=== PATIENT | male | born 1950 | race Caucasian/White ===

== ENCOUNTER 2018-02-06 09:20 | Inpatient (IN) | END 2018-02-07 13:30 | disposition home or self-care (01) | DRG 483 ==

== ENCOUNTER 2018-05-01 05:35 | Inpatient (IN) | END 2018-05-02 16:20 | disposition home or self-care (01) | DRG 483 ==

== ENCOUNTER 2018-06-26 06:19 | Inpatient (IN) | payer MEDICARE, OTHER ==
[2018-06-26] VITALS (23 sets, daily range): BP systolic 96–153; BP diastolic 53–94; PULSE 63–99; RESP 10–29; Ht 180.3 cm; Wt 149.8 kg
[~2018-06-26] VITALS: Ht 180.3 cm; Wt 149.8 kg
--- NOTE | 2018-06-26 05:32 | HPN ---
Date/Time of Note Date/Time of Note DATE: 06/26/18 TIME: 05:32 Interval H&P Admission Note Pt. seen H&P reviewed: No system changes DANILO RIVERA MD Jun 26, 2018 05:32
--- NOTE | 2018-06-26 05:36 | OPR ---
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 Assistance was necessary as a result of the highly technical nature of this operation. When performing an open total shoulder replacement, it is critical to have a trained photographer assistant who is an expert in handling the extremity and assisting the surgeon in tasks such as manipulation of the arm, protection of the neurovascular structures and positioning the implants. This assistance cannot be performed by a radio/tv technician, as it is considered an integral part of the procedure and he should be compensated for their time. PROCEDURE IN DETAIL: Following the administration of general anesthesia supplemented with a peripheral nerve block for postoperative pain control, the patient was examined under anesthesia. Examination of the right shoulder revealed severe crepitus and a complete deformity as a result of the chronic posterior dislocation of the glenohumeral component. There was anteroposterior escape of the humeral head, also. There was an extended deltopectoral incision. The patient was then placed in the beach chair position. Sterile prep and drape was then undertaken. The prior deltopectoral incision was then carried through the interval exposing the conjoined tendon and retracting it medially. A severe deformity was noted and the humeral component was seen to be superiorly displaced. The glenoid appeared intact. No purulence was noted. The humeral component was then seen to be loosen and spinning in the canal. This was removed easily. The humeral canal remained intact. The humerus was retracted and the glenoid was exposed to assure stability. THe glenoid component was intact with severe synovitis. This was debrided The humerus was then reamed and prepared for a size 12 mm,long stem humeral component with a standard metaphyseal component. The actual components were implanted with solid fixation with a 9 mmm trend investigator and a 6 mm liner. The arm was taken through full range of motion with no evident instability. The joint was then thoroughly irrigated, the deep tissues were approximated using #1 suture followed by closure of the deep layer using 2-0 Monocryl. The skin was closed using 4-0 Monocryl suture, and a Prenio dressing. An Ultrasling was then applied. The patient was awakened and transported to the recovery room in stable condition. Estimated blood loss for this procedure was 200 cc. Radiographs will be obtained in the recovery room. DANILO RIVERA MD Jun 26, 2018 05:36
[~2018-06-26 06:19] MED LIST: BUPIVACAINE 0.5% (SDV) 30 ML, morphine SULFATE (PF) 8 MG, EPINEPHrine 0.3 MG, KETOROLAC... IRR SCH; DEXAMETHASONE 1 MG TAB PO ONE; GABA800T PO; GABAPENTIN 300 MG CAP PO ONE; LACTATED RINGER'S 1,000 ML IV* SCH; LEVO75TA5 PO; PRAM0.5T5 PO; PRAM1TAB PO; TRANEXAMIC ACID 1,000 MG in DEXTROSE 5% 100 ML IVPB ONE; VANCOMYCIN 1 GM (PMX) 250 ML IVPB ONE
[2018-06-26] MEDS ORDERED: POLYMYXIN/BACITRACIN 1L IRRIG ONE (06:43)
[2018-06-26] MEDS ORDERED: BUPIVACAINE 0.5%/EPI (SDV) 30 ML INJ ONE (06:52)
[2018-06-26] MEDS ORDERED: THROMBIN 5000 UNIT VIAL ONE (06:53)
[2018-06-26] MEDS ORDERED: CA CHLORIDE 10% 10 ML SYRINGE ONE (06:53)
[2018-06-26] MEDS ORDERED: DESFLURANE 15 MIN ONE (07:00)
[2018-06-26] MEDS ORDERED: GABA-528 PO (07:04)
[2018-06-26] MEDS ORDERED: DULO60CA6 PO (07:06)
[2018-06-26] MEDS ORDERED: PRAM0.5T5 PO (07:06)
[2018-06-26] MEDS ORDERED: ROPIVACAINE 0.5 % 30 ML VIAL ONE (07:27)
[2018-06-26] MEDS ORDERED: PROPOFOL 20 ML ONE ×2 (07:27→09:06)
[2018-06-26] MEDS ORDERED: ROCURONIUM 50 MG INJ ONE (07:27)
[2018-06-26] MEDS ORDERED: MIDAZOLAM 1 MG/ML 2 ML INJ ONE (07:27)
[2018-06-26] MEDS ORDERED: HYDROmorphONE 2 MG/ML SYG ONE (07:27)
[2018-06-26] MEDS ORDERED: CEFAZOLIN 1 GM INJ ONE (07:27)
--- NOTE | 2018-06-26 08:48 | PREAC ---
Date/Time of Note Date/Time of Note DATE: 06/26/18 TIME: 08:46 Anesthesia Eval and Record Evaluation Time Pre-Procedure Interview DATE: 06/26/18 TIME: 08:46 Age 68 Sex male NPO: 8 hrs Preoperative diagnosis Right Shoulder OA Planned procedure Right Total Shoulder Replacement Past Medical History Past Medical History: Includes Endo: Hypothyroid Musculoskeletal: Osteoarthritis GI: Obesity Surgery & Anesthesia Issues No known issue Meds Anticoagulation: No Beta Kartik within 24 hr: No Reason Beta Kartik not given: Pt. not on B-Kartik Reported Medications Duloxetine Hcl* (Cymbalta*) 60 Mg Capsule.dr, 60 MG PO BID, CAP 06/26/18 Pramipexole* (Mirapex*) 0.5 Mg Tablet, 0.5 MG PO QAM, TAB 06/26/18 Gabapentin* (Gabapentin*) 800 Mg Tablet, 1600 MG PO QHS, #90 TAB 06/26/18 Gabapentin* (Neurontin*) 800 Mg Tablet, 800 MG PO BID, #90 TAB 1 TAB IN AM 1 TAB AT NOON 05/01/18 Levothyroxine Sodium* (Levothyroxine Sodium*) 75 Mcg Tablet, 75 MCG PO BEFORE BREAKFAST, #30 TAB 02/06/18 Pramipexole* (Pramipexole*) 1 Mg Tablet, 1 MG PO HS, TAB 02/06/18 Discontinued Reported Medications Pramipexole* (Mirapex*) 0.5 Mg Tablet, 0.5 MG PO BID, TAB 05/01/18 Current Medications Bupivacaine HCl/ Morphine Sulfate/ Epinephrine/ Ketorolac Tromethamine/ Clonidine/Sodium Chloride/ Vancomycin HCl INTRA-OP IRR ; Start 06/26/18 at 06:00 Lactated Ringer's 1,000 ml @ 0 mls/hr Q0M IV* ; Start 06/26/18 at 06:00; Stop 06/26/18 at 23:00 Meds reviewed: Yes Allergies Coded Allergies: Penicillins (Verified Allergy, Unknown, 06/26/18) latex (Verified Allergy, Unknown, 06/26/18) Allergies Reviewed: Yes Labs/Studies Labs Reviewed: Reviewed by anesthesiologist test: N/A Studies: ECG (NSR), CXR (WNL) Pre-procedure Exam Last vitals Vital Signs Date Temp Pulse Resp B/P (MAP) Pulse Ox O2 O2 Flow FiO2 Time Delivery Rate 1/3/19 96.7 73 18 153/94 99 Room Air 07:30 (113) Airway: Adequate mouth opening, Adequate thyromental dist Mallampati: Mallampati II Teeth: Normal Lung: Normal Heart: Normal ASA Physical Status ASA physical status: 2 Emergency: None Planned Anesthetic General/MAC: ETT Nerve block: Brachial plexus (right) Planned Pain Management Single shot nerve block, Parenteral pain med Pre-operative Attestations Prior to commencing anesthesia and surgery, the patient was re-evaluated, there was verification of: *The patient's identity *The results of appropriate recent lab work and preoperative vital signs *The above evaluation not changing prior to induction *Anesthetic plan, risk benefits, alternative and complications discussed with patient/family; questions answered; patient/family understands, accepts and wishes to proceed. LAURIE RAMOS MD Jun 26, 2018 08:48
[2018-06-26] MEDS ORDERED: METOCLOPRAMIDE 10 MG INJ IV PRN (09:00)
[2018-06-26] MEDS ORDERED: ONDANSETRON 4 MG INJ IV PRN ×2 (09:00→10:30)
[2018-06-26] MEDS ORDERED: hydrALAzine 20 MG INJ IV PRN (09:00)
[2018-06-26] MEDS ORDERED: MEPERIDINE 25 MG INJ IV PRN (09:00)
[2018-06-26] MEDS ORDERED: LABETALOL HCL 20MG INJ IV PRN (09:00)
[2018-06-26] MEDS ORDERED: EPHEDrine SULFATE 50 MG/5 ML SYG IV PRN (09:00)
[2018-06-26] MEDS ORDERED: DIPHENHYDRAMINE 50 MG INJ IV PRN ×2 (09:00→10:30)
[2018-06-26] MEDS ORDERED: HYDROmorphONE 1 MG/5 ML IV SYRINGE IV PRN ×3 (09:00)
[2018-06-26] MEDS ORDERED: FENTAnyl 50 MCG/ML VIAL IV PRN ×3 (09:00)
[2018-06-26] MEDS ORDERED: OXYCODONE/ACETAMINOPHEN (5/325) TAB PO PRN ×2 (09:00)
[2018-06-26] MEDS ORDERED: POLYMYXIN/BACITRACIN 1L IRRIG IRR ONE (09:14)
[2018-06-26] MEDS ORDERED: METOCLOPRAMIDE 10 MG INJ ONE (09:23)
[2018-06-26] MEDS ORDERED: ONDANSETRON 4 MG INJ ONE (09:23)
[2018-06-26] MEDS ORDERED: DEXAMETHASONE 4 MG/ML 5 ML INJ ONE (09:23)
[2018-06-26] MEDS ORDERED: KETOROLAC 30 MG INJ ONE (09:24)
[2018-06-26] MEDS ORDERED: TRANEXAMIC ACID 1,000 MG in DEXTROSE 5% 100 ML IV ONE (09:30)
[2018-06-26] MEDS ORDERED: hydrALAzine 20 MG INJ ONE (09:36)
[2018-06-26] MEDS ORDERED: VANCOMYCIN 1 GM INJ ONE (09:48)
[2018-06-26] MEDS ORDERED: TRANEXAMIC ACID 1000 MG IRR ONE ×2 (10:00)
[2018-06-26] MEDS ORDERED: SOD CHLORIDE 0.9% IRR ONE ×2 (10:00)
[2018-06-26] MEDS ORDERED: NEOSTIGMINE 3 MG/3 ML SYRINGE ONE (10:15)
[2018-06-26] MEDS ORDERED: GLYCOPYRROLATE 0.4 MG INJ ONE (10:15)
[2018-06-26] MEDS ORDERED: MAGNESIUM HYDROXIDE 30ML CUP PO PRN (10:30)
[2018-06-26] MEDS ORDERED: KETOROLAC 15 MG INJ IV PRN (10:30)
[2018-06-26] MEDS ORDERED: TRANEXAMIC ACID 1,000 MG in SOD CHLORIDE 0.9% 100 ML IVPB SCH (10:30)
[2018-06-26] MEDS ORDERED: NACL 0.9% 3 ML SYG IV SCH (10:30)
[2018-06-26] MEDS ORDERED: ZOLPIDEM 5 MG TAB PO PRN (10:30)
[2018-06-26] MEDS ORDERED: oxyCODONE 5 MG TAB PO PRN ×3 (10:30)
[2018-06-26] MEDS ORDERED: LOPERAMIDE 2 MG CAP PO PRN (10:30)
--- NOTE | 2018-06-26 10:45 | NUR ---
RECEIVED VERBALLY RESPONSIVE IN NO DISTRESS WITH INCISION CLEAR, CLEAR DRESSING INTACT, NO S/S BLEEDING. C/O LEG CRAMPS, CLAIMS HE HAS EPISODES EVERY NOW AND THEN, SCDS IN PLACE. RIGHT ARM SLING/IMMOBILIZER IN PLACE, R HAND AND FINGERS WARM TO TOUCH, ABLE TO MOVE AND GOOD CAP REFILL, GOOD RADIAL PULSE. DENIES PAIN AT THIS TIME. MADE AWARE HE WILL BE FEELING LIKE SOMETHING IS STUCK IN HIS THROAT DUE TO THE INTERSCALENE BLOCK.
--- NOTE | 2018-06-26 10:45 | NUR ---
ICE PACK TO RIGHT SHOULDER.
--- NOTE | 2018-06-26 10:53 | PAC ---
Date/Time of Note Date/Time of Note DATE: 06/26/18 TIME: 10:52 Post-Anesthesia Notes Post-Anesthesia Note Last documented vital signs Vital Signs Date Temp Pulse Resp B/P (MAP) Pulse Ox O2 O2 Flow FiO2 Time Delivery Rate 06/26/18 98.9 73 18 153/94 99 Room Air 10:50 (113) Activity: WNL Respiratory function: WNL Cardiovascular function: WNL Mental status: Baseline Pain reasonably controlled: Yes Hydration appropriate: Yes Nausea/Vomiting absent: Yes LAURIE RAMOS MD Jun 26, 2018 10:52
--- NOTE | 2018-06-26 11:29 | NUR ---
COMFORTABLE, ASLEEP. BREATHING WITH EASE. NO S/S BLEEDING
[2018-06-26] MEDS: DEXAMETHASONE 2 MG TAB PO SCH ×3 (12:13→23:12)
[2018-06-26] MEDS: ACETAMINOPHEN 500 MG TAB PO SCH ×3 (12:13→23:12)
--- NOTE | 2018-06-26 12:24 | NUR ---
FULLY AWAKE AND ALERT, DENIES PAIN. UPDATED EARLIER ON STATUS WENT HOME WILL BE BACK TOMORROW, PATIENT AWARE. NO S/S BLEEDING. NO F/C DUE TO VOID.
--- NOTE | 2018-06-26 12:52 | NUR ---
COMFORTABLE DENIES PAIN. NO S/S BLEEDING. TRANSFERRED TO ROOM 428.
[2018-06-26] MEDS: VANCOMYCIN 500 MG (PMX) 100 ML IVPB SCH (18:31)
[2018-06-26] MEDS: DULOXETINE 30 MG CAP DR PO SCH (20:42)
[2018-06-26] MEDS: SENNA/DOCUSATE NA (8.6MG/50MG) TAB PO SCH (20:42)
--- NOTE | 2018-06-26 20:56 | NUR ---
EOSS: Pt received in stable condition from PACU. Pt was unable to void in urinal despite multiple attempts; Bladder scan showed >894mL in bladder. Dr. Alexander (covering Dr. Smith) was contacted; new orders for straight cath received. 1250mL drained with straight cath, pt tolerated procedure well. Bladder scan showed 0mL residual. Pt denies pain and nausea. Tolerating regular diet well. Pt verbalized a desire to get out of bed to have a bowel movement in toilet. Pt was educated that he could not get OOB until cleared by PT, per MD order. Pt verbalized understanding and reported he would stay in bed. Call light on, within reach. Bed alarm on. Vitals remain stable. R shoulder dressing remains c/d/i. Shoulder brace is in place.
[2018-06-26] MEDS ORDERED: PRAMIPEXOLE 1 MG TAB PO SCH (21:00)
[2018-06-26] MEDS ORDERED: GABAPENTIN 300 MG CAP PO SCH (21:00)
[2018-06-26] MEDS ORDERED: GABAPENTIN 400 MG CAP PO SCH (21:00)
[2018-06-27 00:17] VITALS: BP 126/79; PULSE 81
[2018-06-27] MEDS: HYDROmorphONE 1 MG/ML SYG IV PRN ×2 (02:45→13:00)
[2018-06-27] MEDS: DEXAMETHASONE 2 MG TAB PO SCH (05:35)
[2018-06-27] MEDS: ACETAMINOPHEN 500 MG TAB PO SCH ×2 (05:35→11:58)
--- NOTE | 2018-06-27 06:07 | PDOCDIS ---
Discharge Instructions DIAGNOSIS Discharge Diagnosis Failed reverse total shoulder replacement CONDITION [id number] Patient Condition: [id number] Good HOME CARE INSTRUCTIONS: [id number] Diet Instructions: Gaevq1m Regular Xwknh6Kc Special Diet: Qscfo0g REGULAR ACTIVITY: Wjepg0Nx Activity Restrictions: Gofwa8y Slowly Increase Activity Ulygz3Cc Bathing Restrictions: Ggcgs8r Shower FOLLOW UP/APPOINTMENTS Follow-up Plan 2 weeks SCHOOL/WORK RELEASE May return to School/Work with: With Restrictions School/Work Release Comment: 5 pound tabletop usage for 6 weeks DANILO RIVERA MD Jun 27, 2018 06:07
--- NOTE | 2018-06-27 06:07 | DS ---
Date/Time of Note Date/Time of Note DATE: 06/27/18 TIME: 06:06 Discharge Summary Admission/Discharge Info Admit Date/Time Jun 26, 2018 at 06:19 Discharge Date/Time June 27, 2018 Discharge Diagnosis Failed reverse total shoulder replacement Patient Condition: Good Hospital Course Admitted and underwent uncomplicated procedure. Postop day 1 was discharged for follow-up in 2 weeks Home Meds Reported Medications Duloxetine Hcl* (Cymbalta*) 60 Mg Capsule.dr, 60 MG PO BID, CAP 06/26/18 Pramipexole* (Mirapex*) 0.5 Mg Tablet, 0.5 MG PO QAM, TAB 06/26/18 Gabapentin* (Gabapentin*) 800 Mg Tablet, 1600 MG PO QHS, #90 TAB 06/26/18 Gabapentin* (Neurontin*) 800 Mg Tablet, 800 MG PO BID, #90 TAB 1 TAB IN AM 1 TAB AT NOON 05/01/18 Levothyroxine Sodium* (Levothyroxine Sodium*) 75 Mcg Tablet, 75 MCG PO BEFORE BREAKFAST, #30 TAB 02/06/18 Pramipexole* (Pramipexole*) 1 Mg Tablet, 1 MG PO HS, TAB 02/06/18 Discontinued Reported Medications Pramipexole* (Mirapex*) 0.5 Mg Tablet, 0.5 MG PO BID, TAB 05/01/18 Primary Care Provider Not On Staff Doctor Pending Labs Microbiology Date/Time Source Procedure Growth Status 06/26/18 09:29 Synovial Fluid Gram Stain Pending Resulted 06/26/18 09:29 Synovial Fluid Body Fluid Culture - Preliminary Resulted DANILO RIVERA MD Jun 27, 2018 06:07
--- NOTE | 2018-06-27 06:08 | PN ---
Date/Time of Note Date/Time of Note DATE: 06/27/18 TIME: 06:07 Subjective Awake and alert. Minimal pain. Objective Vitals Vital Signs Date Temp Pulse Resp B/P (MAP) Pulse Ox O2 O2 Flow FiO2 Time Delivery Rate 06/27/18 98.3 81 126/79 95 00:17 (95) 06/26/18 18 20:09 06/26/18 Room Air 11:54 Intake and Output 06/26/18 06/26/18 06/27/18 1414:59 22:59 06:59 IntakeIntake Total 830 ml 940 ml OutputOutput Total 50 ml 1250 ml BalanceBalance 780 ml -310 ml Wound is clean and dry. He is neurologically intact. There are no signs of DVT. Medications Medications Current Medications Duloxetine HCl (Cymbalta) 60 mg BID PO Last administered on 06/26/18at 20:42; Admin Dose 60 MG; Start 06/26/18 at 21:00 Gabapentin (Neurontin) 1,600 mg QHS PO Last administered on 06/26/18at 20:42; Admin Dose 1,600 MG; Start 06/26/18 at 21:00 Levothyroxine Sodium (Synthroid) 75 mcg BEFORE BREAKFAST PO ; Start 06/27/18 at 07:00 Pramipexole (Mirapex) 1 mg HS PO Last administered on 06/26/18at 20:42; Admin Dose 1 MG; Start 06/26/18 at 21:00 Pramipexole (Mirapex) 0.5 mg QAM PO ; Start 06/27/18 at 09:00 Vancomycin HCl 100 ml @ 100 mls/hr Q12H IVPB Last administered on 06/26/18at 18:31; Admin Dose 100 MLS/HR; Start 06/26/18 at 18:00; Stop 06/27/18 at 06:59 Senna/Docusate Sodium (Senokot-S) 1 tab BID PO Last administered on 06/26/18at 2 0:42; Admin Dose 1 TAB; Start 06/26/18 at 21:00 Simethicone (Mylicon) 80 mg TID PRN PO DISTENSION/GAS/BLOATING; Start 06/26/18 at 10:30 Magnesium Hydroxide (Milk Of Mag) 30 ml BID PRN PO CONSTIPATION; Start 06/26/18 at 10:30 Loperamide HCl (Imodium Cap) 2 mg Q6H PRN PO DIARRHEA; Start 06/26/18 at 10:30 Gabapentin (Neurontin) 300 mg HS PO ; Start 06/26/18 at 21:00; Status Hold Acetaminophen (Tylenol Tab) 500 mg Q6 PO Last administered on 06/27/18at 05:35; Admin Dose 500 MG; Start 06/26/18 at 12:00 Oxycodone HCl (Roxicodone) 15 mg Q4H PRN PO PAIN; Start 06/26/18 at 10:30 Oxycodone HCl (Roxicodone) 10 mg Q4H PRN PO PAIN; Start 06/26/18 at 10:30 Oxycodone HCl (Roxicodone) 5 mg Q4H PRN PO PAIN; Start 06/26/18 at 10:30 Hydromorphone HCl (Dilaudid) 1 mg Q4H PRN IV BREAKTHROUGH PAIN Last administered on 06/27/18at 02:45; Admin Dose 1 MG; Start 06/26/18 at 10:30 Ketorolac Tromethamine (Toradol) 15 mg Q6H PRN IV PAIN; Start 06/26/18 at 10:30 Ondansetron HCl (Zofran Inj) 4 mg Q6H PRN IV NAUSEA AND/OR VOMITING; Start 06/26/18 at 10:30 Diphenhydramine HCl (Benadryl) 25 mg Q6H PRN IV PRURITUS; Start 06/26/18 at 10:30 Zolpidem Tartrate (Ambien) 10 mg HS PRN PO INSOMNIA; Start 06/26/18 at 10:30 IV Flush (NS 3 ml) 3 ml per protocol IV ; Start 06/26/18 at 10:30 VTE Prophylaxis Risk score (from Nsg)>0 risk: 7 SCD applied (from Nsg): Yes Lines/Catheters IV Catheter Type: Saline Lock Salcido in Place: No Assessment/Plan Hospital Course Admitted and underwent uncomplicated procedure. Postop day 1 was discharged for follow-up in 2 weeks Assessment/Plan Assessment: Status post revision of reverse total shoulder Plan: He will be discharged this morning physical therapy will start at 4 weeks postop. In the meantime, he can use his arm for very simple and light things only. DANILO RIVERA MD Jun 27, 2018 06:08
[2018-06-27] MEDS: VANCOMYCIN 500 MG (PMX) 100 ML IVPB SCH (06:10)
--- NOTE | 2018-06-27 06:51 | NUR ---
PT HAS HAD SEEPAGE FROM R SHOULDER INCISION ET DRESSED WITH ABD PAD ET TAPE. THIS AM PT STATES HE VOIDED A LITTLE BIT BUT NOT SINCE LAST PM. PT'S BLADDERS SCANNED ET HAD 15 ML IN ONE SECTION ET 0 ML THE REST OF THE BLADDER. DR RIVERA HERE ET NOTIFIED. NO NEW ORDERS RECEIVED. TO BR NOTED PT DRANK ONE CUP 120ML THROUGH THE NOC PER SELF REPORT. VSS AFEBRILE. DENIES PAIN THIS AM. WILL CONTINUE POC
[2018-06-27] MEDS ORDERED: LEVOTHYROXINE 75 MCG TAB PO SCH (07:00)
[2018-06-27 07:56] VITALS: BP 120/60; PULSE 71; RESP 18
[2018-06-27] MEDS: SENNA/DOCUSATE NA (8.6MG/50MG) TAB PO SCH (08:08)
[2018-06-27] MEDS: DULOXETINE 30 MG CAP DR PO SCH (08:10)
[2018-06-27] MEDS ORDERED: PRAMIPEXOLE 0.25 MG TAB PO SCH (09:00)
[2018-06-27 14:00] VITALS: BP 124/64; PULSE 70; RESP 18
--- NOTE | 2018-06-27 17:22 | NUR ---
Discharge: Pt discharged in wheelchair with UPPER LEATHER CUTTER, Vero, to in car. Pt discharged with all personal belongings and patient belonging form signed. Pt received discharge instructions, patient health summary, instructions for follow-up and [email or web address] [employer]. Pt verbalized understanding. Pt reports having prescriptions from Dr. Damon at home already. IV removed, no issues. Small blood stain noted on mepilex when preparing pt for discharge, this stain was slightly larger than stain noted at 1300; Dr. Damon made aware, Dr. Damon cleared pt for discharge, no new orders. Pt stable at discharge, A&Ox4.
== END 2018-06-27 14:39 | disposition home or self-care (01) | DRG 483 ==
LOC: REC 06:19 → EDSTATUS 12:00 → MS1 12:19
PROVIDERS: ADMIT Orthopaedic Surgery; ATTEND Orthopaedic Surgery
PROC: 0RPJ0JZ Removal of Synthetic Substitute from Right Shoulder Joint, Open Approach (ICD-10-PCS; 2018-06-26)
PROC: 0RRJ0J6 Replacement of Right Shoulder Joint with Synthetic Substitute, Humeral Surface, Open Approach (ICD-10-PCS; principal; 2018-06-26 08:00)
DX: T84.028A Dislocation of other internal joint prosthesis, initial encounter (principal); Z68.42 Body mass index [BMI] 45.0-49.9, adult; E66.9 Obesity, unspecified; M25.511 Pain in right shoulder
CPT/HCPCS: 87070; 88300; 88304; C1713; J0171; J0360; J0690; J0735; J1100; J1170; J1885; J2175; J2250; J2274; J2405; J2710; J2765; J2795; J3370

== ENCOUNTER 2018-08-07 10:11 | Inpatient (IN) | payer MEDICARE, OTHER ==
[2018-08-07] VITALS (22 sets, daily range): BP systolic 130–166; BP diastolic 71–99; PULSE 70–84; RESP 13–22; Ht 180.3 cm; Wt 157.8 kg
[~2018-08-07] VITALS: Ht 180.3 cm; Wt 157.8 kg
--- NOTE | 2018-08-07 05:57 | HPN ---
Date/Time of Note Date/Time of Note DATE: 08/07/18 TIME: 05:57 Interval H&P Admission Note Pt. seen H&P reviewed: No system changes DANILO RIVERA MD Aug 07, 2018 05:57
--- NOTE | 2018-08-07 06:00 | OPR ---
Date/Time of Note Date/Time of Note DATE: 08/07/18 TIME: 05:57 Operative Report Procedure Date: Aug 07, 2018 Preoperative Diagnosis Dislocated reverse total shoulder with ongoing drainage Postoperative Diagnosis 1. Dislocated right reverse total shoulder replacement 2. Possible infection right shoulder Operation/Procedure Performed 1. Revision of reverse total shoulder replacement to hemiarthroplasty with cement spacer 2. Infiltration of PRP solution Surgeon see signature line Notched Blade Loader Noe Garnica PA-C Anesthesia Type: general Estimated Blood Loss: 150 - 200 ml's Transfusion none Specimen See op note Grafts/Implants See op note Complications none Pt Condition Post Procedure: stable Disposition: PACU Procedure Description WAFFLE MACHINE OPERATOR SURGEON: Noe Garnica PA-C was asked to be present for this case at my request. Assistance was necessary as a result of the highly technical nature of this operation. When performing an open total shoulder replacement, it is critical to have a trained housing assistant who is an expert in handling the extremity and assisting the surgeon in tasks such as suture management and knot-tying techniques as well as implants. This assistance cannot be performed by a cathodic protection technician, as it is considered an integral part of the procedure and the housing assistant should be compensated for their time. PROCEDURE IN DETAIL: Following the administration of general anesthesia supplemented with a peripheral nerve block for postoperative pain control, the patient was examined under anesthesia. Examination of the right shoulder revealed severe crepitus and a complete deformity as a result of the chronic and recurrent dislocation of the glenohumeral component. There was anteroposterior escape of the humeral head, also. There was an extended deltopectoral incision, which was swollen and there were small areas of punctate drainage. The right antecubital fossa was sterilely prepped and 60 cc of blood were aspirated. The blood was then transferred to the area representative from the company and the PRP solution prepared. The patient was then placed in the beach chair position. Sterile prep and drape was then undertaken. The prior deltopectoral incision was then carried through the interval exposing the conjoined tendon and retracting it medially. A severe deformity was noted and the humeral component was seen to be superiorly displaced. Severe purulence was noted throughout. The humeral component was dislocated anterior and superior. The humeral component was then seen to be significantly inflamed. A osteotome was then used to elevate around the area and the humeral component was completely removed with the small cement mantle that had been previously implanted. The humerus was retracted and the glenoid was exposed to assure stability. THe glenoid component was seen to be loose. It was also removed in its entirety. Severe reactive tissue was then debrided. An extensive debridement and irrigation was then undertaken. The humerus was then prepared for a size 6 mm cement component with antibiotics. In addition, 2 g of vancomycin were added to the area for local effect. The joint was thoroughly irrigated. The canal was then cemented and the temporary spacer was placed. It should be mentioned that the cement in the canal also had 1 g of vancomycin powder added to it. Prior to insertion of the humeral component, PRP solution was then placed into the canal prior to implantation of the actual devices. The arm was gently placed in rotation and no significant subluxation episodes were noted. The joint was then thoroughly irrigated, the deep tissues were approximated using a running #1 monofilament suture followed by closure of the skin with a same suture, and a Prenio dressing. An Ultrasling was then applied. The patient was awakened and transported to the recovery room in stable condition. Estimated blood loss for this procedure was 200 cc. Radiographs will be obtained in the recovery room. DANILO RIVERA MD Aug 07, 2018 06:00
[~2018-08-07 10:11] MED LIST changes: -BUPIVACAINE 0.5% (SDV) 30 ML, morphine SULFATE (PF) 8 MG, EPINEPHrine 0.3 MG, KETOROLAC... IRR SCH; -DEXAMETHASONE 1 MG TAB PO ONE; +DULO60CA6 PO; +GABA-528 PO; -GABAPENTIN 300 MG CAP PO ONE; -LACTATED RINGER'S 1,000 ML IV* SCH; +ROCURONIUM 50 MG INJ ONE; -TRANEXAMIC ACID 1,000 MG in DEXTROSE 5% 100 ML IVPB ONE; -VANCOMYCIN 1 GM (PMX) 250 ML IVPB ONE
[2018-08-07] MEDS: VANCOMYCIN 1 GM (PMX) 250 ML IVPB ONE ×2 (10:36→12:45)
[2018-08-07] MEDS ORDERED: OXYC-279 PO (10:51)
[2018-08-07] MEDS ORDERED: PRAM1.5T8 PO (10:57)
[2018-08-07] MEDS ORDERED: DOXE100C4 PO (10:57)
[2018-08-07] MEDS ORDERED: TRANEXAMIC ACID 1,000 MG in DEXTROSE 5% 100 ML IVPB ONE (11:00)
[2018-08-07] MEDS ORDERED: DEXAMETHASONE 1 MG TAB PO ONE (11:00)
[2018-08-07] MEDS ORDERED: GABAPENTIN 300 MG CAP PO ONE (11:00)
[2018-08-07] MEDS ORDERED: BUPIVACAINE 0.5% (SDV) 30 ML, morphine SULFATE (PF) 8 MG, EPINEPHrine 0.3 MG, KETOROLAC... IRR SCH ×7 (12:30)
[2018-08-07] MEDS ORDERED: MIDAZOLAM 1 MG/ML 2 ML INJ ONE (13:01)
[2018-08-07] MEDS ORDERED: ROPIVACAINE 0.5 % 30 ML VIAL ONE (13:01)
--- NOTE | 2018-08-07 13:40 | PREAC ---
Date/Time of Note Date/Time of Note DATE: 08/07/18 TIME: 13:38 Anesthesia Eval and Record Evaluation Time Pre-Procedure Interview DATE: 08/07/18 TIME: 13:38 Age 68 Sex male NPO: 8 hrs Preoperative diagnosis Failed reverse Rt total shoulder Planned procedure reverse Total shoulder replacement Past Medical History Past Medical History: Includes Cardio: HTN, Dyslipidemia Endo: Diabetes, Hypothyroid Pulm: COPD GI: Morbid obesity Surgery & Anesthesia Issues No known issue Meds Anticoagulation: No Beta Kartik within 24 hr: No Reason Beta Kartik not given: Pt. not on B-Kartik Reported Medications Doxepin Hcl* (Doxepin Hcl*) 100 Mg Capsule, 100 MG PO HS, CAP 08/07/18 Pramipexole* (Mirapex*) 1.5 Mg Tablet, 1.5 MG PO QPM, TAB 08/07/18 Oxycodone HCl/Acetaminophen (Percocet 5-325 mg Tablet) 1 Each Tablet, 2 EACH PO Q4 PRN for PAIN, TAB 08/07/18 Pramipexole* (Mirapex*) 0.5 Mg Tablet, 0.5 MG PO QAM, TAB 06/26/18 Gabapentin* (Gabapentin*) 800 Mg Tablet, 1600 MG PO QHS, #90 TAB 06/26/18 Gabapentin* (Neurontin*) 800 Mg Tablet, 800 MG PO BID, #90 TAB 1 TAB IN AM 1 TAB AT NOON 05/01/18 Levothyroxine Sodium* (Levothyroxine Sodium*) 75 Mcg Tablet, 75 MCG PO BEFORE BREAKFAST, #30 TAB 02/06/18 Discontinued Reported Medications Duloxetine Hcl* (Cymbalta*) 60 Mg Capsule.dr, 60 MG PO BID, CAP 06/26/18 Pramipexole* (Pramipexole*) 1 Mg Tablet, 1 MG PO HS, TAB 02/06/18 Current Medications Bupivacaine HCl/ Morphine Sulfate/ Epinephrine/ Ketorolac Tromethamine/ Clonidine/Sodium Chloride/ Vancomycin HCl INTRA-OP IRR ; Start 08/07/18 at 12:30; Stop 08/07/18 at 15:00 Meds reviewed: Yes Allergies Coded Allergies: Penicillins (Verified Allergy, Unknown, 08/07/18) cephalexin (Verified Allergy, Unknown, SWELLING, 08/07/18) latex (Verified Allergy, Unknown, 08/07/18) Allergies Reviewed: Yes Labs/Studies Labs Reviewed: Reviewed by anesthesiologist test: N/A Studies: ECG Pre-procedure Exam Last vitals Vital Signs Date Temp Pulse Resp B/P (MAP) Pulse Ox O2 O2 Flow FiO2 Time Delivery Rate 08/07/18 96.7 84 18 166/82 99 Room Air 10:52 (110) Airway: Adequate mouth opening, Adequate thyromental dist Mallampati: Mallampati III Teeth: Normal Lung: Normal Heart: Normal ASA Physical Status ASA physical status: 3 Emergency: E Planned Anesthetic General/MAC: LMA Planned Pain Management Single shot nerve block, Parenteral pain med Pre-operative Attestations Prior to commencing anesthesia and surgery, the patient was re-evaluated, there was verification of: *The patient's identity *The results of appropriate recent lab work and preoperative vital signs *The above evaluation not changing prior to induction *Anesthetic plan, risk benefits, alternative and complications discussed with patient/family; questions answered; patient/family understands, accepts and wishes to proceed. KATELYN AYON MD Aug 07, 2018 13:40
[2018-08-07] MEDS ORDERED: VANCOMYCIN 1 GM INJ ONE (14:12)
[2018-08-07] MEDS ORDERED: TOBRAMYCIN 1.2 GM POWDER ONE (14:13)
[2018-08-07] MEDS ORDERED: POLYMYXIN/BACITRACIN 1L IRRIG ONE (14:13)
[2018-08-07] MEDS ORDERED: ETOMIDATE 20 MG INJ ONE (15:04)
[2018-08-07] MEDS ORDERED: LIDOCAINE 2% (SDV) 5 ML INJ ONE (15:04)
[2018-08-07] MEDS ORDERED: PROPOFOL 20 ML ONE (15:04)
[2018-08-07] MEDS ORDERED: ONDANSETRON 4 MG INJ ONE (15:07)
[2018-08-07] MEDS ORDERED: oxyCODONE 5 MG TAB PO PRN (15:30)
[2018-08-07] MEDS ORDERED: LOPERAMIDE 2 MG CAP PO PRN (15:30)
[2018-08-07] MEDS ORDERED: MEPERIDINE 25 MG INJ IV PRN (15:30)
[2018-08-07] MEDS ORDERED: LIDOCAINE 1% (MPF) 5 ML VIAL SC ONE (15:30)
[2018-08-07] MEDS ORDERED: HYDROmorphONE 1 MG/5 ML IV SYRINGE IV PRN ×2 (15:30)
[2018-08-07] MEDS ORDERED: NALOXONE (0.4 MG/ML) INJ IV PRN (15:30)
[2018-08-07] MEDS ORDERED: NACL 0.9% 3 ML SYG IV SCH (15:30)
[2018-08-07] MEDS ORDERED: MAGNESIUM HYDROXIDE 30ML CUP PO PRN (15:30)
[2018-08-07] MEDS ORDERED: METOCLOPRAMIDE 10 MG INJ IV PRN (15:30)
[2018-08-07] MEDS ORDERED: FENTAnyl 50 MCG/ML VIAL IV PRN (15:30)
[2018-08-07] MEDS ORDERED: ZOLPIDEM 5 MG TAB PO PRN (15:30)
[2018-08-07] MEDS ORDERED: ONDANSETRON 4 MG INJ IV PRN ×2 (15:30)
[2018-08-07] MEDS ORDERED: DIPHENHYDRAMINE 50 MG INJ IV PRN ×2 (15:30)
--- NOTE | 2018-08-07 15:30 | PAC ---
Date/Time of Note Date/Time of Note DATE: 08/07/18 TIME: 15:30 Post-Anesthesia Notes Post-Anesthesia Note Last documented vital signs Vital Signs Date Temp Pulse Resp B/P (MAP) Pulse Ox O2 O2 Flow FiO2 Time Delivery Rate 08/07/18 96.7 84 18 166/82 99 Room Air 10:52 (110) Activity: WNL Respiratory function: WNL Cardiovascular function: WNL Mental status: Baseline Pain reasonably controlled: Yes Hydration appropriate: Yes Nausea/Vomiting absent: Yes Comments BP:124/56, P:89, spo2:100%, T:99,5 KATELYN AYON MD Aug 07, 2018 15:30
--- NOTE | 2018-08-07 15:31 | PDOCDIS ---
Discharge Instructions DIAGNOSIS Discharge Diagnosis Infected total shoulder CONDITION [id number] Patient Condition: [id number] Good HOME CARE INSTRUCTIONS: [id number] Diet Instructions: Oenvg1i Regular ACTIVITY: Klqpm2Gg Activity Restrictions: Ewjmq2y Rest between Activity Keep Limb Elevated [id number] Bathing Restrictions: Hojke4d Shower FOLLOW UP/APPOINTMENTS Follow-up Plan 2 weeks in the office SCHOOL/WORK RELEASE May return to School/Work with: With Restrictions School/Work Release Comment: Tabletop usage only 2 pounds maximum DANILO RIVERA MD Aug 07, 2018 15:31
[2018-08-07] MEDS ORDERED: TRANEXAMIC ACID 1GM/100ML(PMX) 100 ML IVPB ONE (16:00)
--- NOTE | 2018-08-07 17:09 | CONS ---
DATE OF ADMISSION: 08/07/2018 DATE OF CONSULTATION: 08/07/2018 TYPE OF CONSULTATION: Infectious disease. REASON FOR CONSULTATION: Antibiotic management. HISTORY OF PRESENT ILLNESS: Davin Goodson is a 68-year-old pleasant male who is being seen in the [facility] overy room status post reverse shoulder surgery. His past problems include: 1. Hypothyroidism. 2. Severe migraines. 3. Depression. 4. Status post appendectomy in 1962. 5. Thoracic outlet surgery in 1979. 6. Three knee replacements, the left, right and right again 4 months later. The patient has had a number of shoulder surgeries. In 11/2014, he had right shoulder reverse surger y and was paralyzed when he came out of the operating room for a period of time. In 01/2018, Dr. All pillai did a reverse shoulder surgery on him. In 02/2018, he had left shoulder surgery. In 06/26/2018 , he had a second right shoulder surgery which was not effective and today, he underwent revision of the reverse total shoulder replacement to a hemiarthroplasty with cement spacer. The was dislocated reverse total shoulder with ongoing drainage, postoperative dislocated right reverse total shoulder r eplacement, possible infection. PAST MEDICAL HISTORY: Operations as outlined. FAMILY HISTORY: without children. His mother and father are . He has one sister wh o is estranged with. ALLERGIES: 1. PENICILLIN. 2. LATEX. 3. KEFLEX. HABITS: He does not smoke. He does not drink. He has a black Labrador at home. 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 REVIEW OF SYSTEMS: Noncontributory. PHYSICAL EXAMINATION: GENERAL: The patient is a well-developed, well-nourished, somewhat obese white male who is alert, re sponsive, in no acute distress. VITAL SIGNS: Stable. He is afebrile. SKIN: Without generalized rash. HEENT: Within normal limits. NECK: Supple. LYMPH NODES: None palpable. CHEST: Decreased breath sounds at the bases. HEART: Without murmur or gallop. ABDOMEN: Soft, nontender without organosplenomegaly or masses. EXTREMITIES: He has right shoulder is status post surgery. He has it in sling and it is bandaged. RECTAL AND GENITAL: Deferred. NEUROLOGIC: No focal neurological abnormality. ANCILLARY LABORATORY DATA: His white count is 4.8, H and H of 8.3 and 28.2, platelet count 252,000 w ith 84% neutrophils. DIAGNOSTIC DATA: His reverse shoulder surgery x-ray shows inferior subluxation of the humerus relati ve to the glenoid, postsurgical soft tissue swelling and air. The patient is currently on vancomycin 1 gram q.12. IMPRESSION AND PLAN: The patient has infection of his right shoulder. Cultures are pending. He is on vancomycin. We will continue him on this. He needs a PICC line and 6 weeks of IV therapy. I kam l dictate my findings to Dr. Smith. Dictated By: DANIELLE ANGEL MD, JD/MONTRELL Conf#: [id number] DID#: [id number] CC: DANILO SMITH MD;*[facility]*
[2018-08-07] MEDS ORDERED: ALBUTEROL 0.083% (NEB) 2.5 MG/3 ML AMP HHN STA (17:10)
[2018-08-07] MEDS: HYDROmorphONE 1 MG/ML SYG IV PRN ×2 (17:59→23:59)
[2018-08-07] MEDS: DEXAMETHASONE 2 MG TAB PO SCH ×2 (18:00→23:57)
[2018-08-07] MEDS: ACETAMINOPHEN 500 MG TAB PO SCH ×2 (18:00→23:57)
[2018-08-07] MEDS: LORATADINE 10 MG TAB PO SCH (18:39)
[2018-08-07] MEDS: KETOROLAC 15 MG INJ IV PRN (18:42)
[2018-08-07] MEDS: oxyCODONE 5 MG TAB PO PRN ×2 (18:49→22:51)
[2018-08-07] MEDS ORDERED: DOXEPIN 50 MG CAP PO SCH (21:00)
[2018-08-07] MEDS: PRAMIPEXOLE 1 MG TAB PO SCH (21:56)
[2018-08-07] MEDS: GABAPENTIN 300 MG CAP PO SCH (21:56)
[2018-08-07] MEDS: DOXEPIN 25 MG CAP PO SCH (21:56)
[2018-08-07] MEDS: SENNA/DOCUSATE NA (8.6MG/50MG) TAB PO SCH (21:57)
[2018-08-07] MEDS: GABAPENTIN 400 MG CAP PO SCH (21:57)
[2018-08-08 00:12] VITALS: BP 131/61; PULSE 68; RESP 18
[2018-08-08] MEDS: VANCOMYCIN 500 MG (PMX) 100 ML IVPB SCH ×2 (02:29→13:54)
[2018-08-08] MEDS: oxyCODONE 5 MG TAB PO PRN ×4 (02:29→23:24)
[2018-08-08] MEDS: DEXAMETHASONE 2 MG TAB PO SCH ×2 (05:22→13:16)
[2018-08-08] MEDS: ACETAMINOPHEN 500 MG TAB PO SCH ×3 (05:22→18:16)
--- NOTE | 2018-08-08 06:09 | PN ---
Date/Time of Note Date/Time of Note DATE: 08/08/18 TIME: 06:07 Subjective Awake and alert this morning. Overall, he is doing reasonably well. There was drainage overnight, now resolved. The infectious disease input has been noted. The PICC line is pending. Objective Vitals Vital Signs Date Temp Pulse Resp B/P (MAP) Pulse Ox O2 O2 Flow FiO2 Time Delivery Rate 08/08/18 97.6 68 18 131/61 99 00:12 (84) 08/07/18 Nasal 20:00 Cannula 08/07/18 2.0 19:00 Intake and Output 08/07/18 08/07/18 08/08/18 1515:00 23:00 07:00 IntakeIntake Total 1000 ml 1090 ml 2200 ml OutputOutput Total 2500 ml 2000 ml BalanceBalance 1000 ml -1410 ml 200 ml Currently, his wound is dry. The dressing was removed and a new dressing applied this morning. No active bloody drainage, only clear serosanguinous fluid. Neurologically, he is intact. He has no signs of DVT. Results Result Diagram: 08/07/18 1549 Medications Medications Current Medications Gabapentin (Neurontin) 1,600 mg QHS PO Last administered on 08/07/18at 21:57; Admin Dose 1,600 MG; Start 08/07/18 at 21:00 Levothyroxine Sodium (Synthroid) 75 mcg BEFORE BREAKFAST PO ; Start 08/08/18 at 07:00 Pramipexole (Mirapex) 0.5 mg QAM PO ; Start 08/08/18 at 09:00 Pramipexole (Mirapex) 1.5 mg QPM PO Last administered on 08/07/18at 21:56; Admin Dose 1.5 MG; Start 08/07/18 at 21:00 Vancomycin HCl 100 ml @ 100 mls/hr Q12H IVPB Last administered on 08/08/18at 02:29; Admin Dose 100 MLS/HR; Start 08/08/18 at 02:00; Stop 08/08/18 at 14:59 Senna/Docusate Sodium (Senokot-S) 1 tab BID PO Last administered on 08/07/18at 21:57; Admin Dose 1 TAB; Start 08/07/18 at 21:00 Simethicone (Mylicon) 80 mg TID PRN PO .GAS; Start 08/07/18 at 15:30 Magnesium Hydroxide (Milk Of Mag) 30 ml BID PRN PO .CONSTIPATION; Start 08/07/18 at 15:30 Loperamide HCl (Imodium Cap) 2 mg Q6H PRN PO .DIARRHEA; Start 08/07/18 at 15:30 Dexamethasone (Decadron) 2 mg Q6 PO Last administered on 08/08/18at 05:22; Admin Dose 2 MG; Start 08/07/18 at 18:00; Stop 08/08/18 at 12:01 Gabapentin (Neurontin) 300 mg HS PO Last administered on 08/07/18at 21:56; Admin Dose 300 MG; Start 08/07/18 at 21:00 Acetaminophen (Tylenol Tab) 500 mg Q6 PO Last administered on 08/08/18at 05:22; Admin Dose 500 MG; Start 08/07/18 at 18:00 Oxycodone HCl (Roxicodone) 15 mg Q4H PRN PO .PAIN Last administered on 08/08/18at 02:29; Admin Dose 15 MG; Start 08/07/18 at 15:30 Oxycodone HCl (Roxicodone) 10 mg Q4H PRN PO .PAIN; Start 08/07/18 at 15:30 Oxycodone HCl (Roxicodone) 5 mg Q4H PRN PO .PAIN; Start 08/07/18 at 15:30 Hydromorphone HCl (Dilaudid) 1 mg Q4H PRN IV .BREAKTHROUGH PAIN Last administered on 08/07/18at 23:59; Admin Dose 1 MG; Start 08/07/18 at 15:30 Ketorolac Tromethamine (Toradol) 15 mg Q6H PRN IV .PAIN Last administered on 08/07/18at 18:42; Admin Dose 15 MG; Start 08/07/18 at 15:30 Ondansetron HCl (Zofran Inj) 4 mg Q6H PRN IV NAUSEA/VOMITING; Start 08/07/18 at 15:30 Diphenhydramine HCl (Benadryl) 25 mg Q6H PRN IV .PRURITUS; Start 08/07/18 at 15:30 Zolpidem Tartrate (Ambien) 10 mg HS PRN PO .INSOMNIA; Start 08/07/18 at 15:30 IV Flush (NS 3 ml) 3 ml per protocol IV ; Start 08/07/18 at 15:30 Naloxone HCl (Narcan) 0.2 mg Q2M PRN IV .RESP RATE; Start 08/07/18 at 15:30 Loratadine (Claritin) 10 mg DAILY PO Last administered on 08/07/18at 18:39; Admin Dose 10 MG; Start 08/07/18 at 18:30 Doxepin HCl (Sinequan) 100 mg QHS PO Last administered on 08/07/18at 21:56; Admin Dose 100 MG; Start 08/07/18 at 21:00 VTE Prophylaxis Risk score (from [facility] [place] risk: 11 SCD applied (from [facility] [place] Yes Lines/Catheters IV Catheter Type: Saline Lock Salcido in Place: No Assessment/Plan Assessment/Plan Assessment: Status post removal of infected reverse total shoulder now with temporary implant Plan: I will await the infectious disease input with regards to his intravenous management over the next few weeks. I explained the situation to the patient and ultimately we will plan on the time of intravenous antibiotics followed by an observation period of about 2 weeks and a subsequent aspiration. If the aspiration is negative, then we will consider reimplantation in approximately 2-3 months. For now, he is to have his PICC line inserted this morning and we will manage his discharge after that. DANILO RIVERA MD Aug 08, 2018 06:09
[2018-08-08] MEDS: LEVOTHYROXINE 75 MCG TAB PO SCH (06:42)
[2018-08-08 07:48] VITALS: BP 134/65; PULSE 74; RESP 18
[2018-08-08] MEDS: SENNA/DOCUSATE NA (8.6MG/50MG) TAB PO SCH ×2 (08:36→21:00)
[2018-08-08] MEDS: PRAMIPEXOLE 0.25 MG TAB PO SCH (08:37)
[2018-08-08] MEDS: LORATADINE 10 MG TAB PO SCH (08:37)
[2018-08-08] MEDS: KETOROLAC 15 MG INJ IV PRN (09:52)
--- NOTE | 2018-08-08 13:12 | CONS ---
Assessment/Plan Assessment/Plan Hospital Course (Demo Recall) Patient is alert just got the PICC line he is in no distress looks comfortable. No fevers overnight. Intraoperative cultures pending. WBC today 5.2 H&H 8.3 and 28 platelets 280 neutrophils 88.2 Antimicrobials: Vancomycin Allergy: Penicillin, Keflex, latex Physical examination: Morbidly obese well-developed elderly white man who is alert in no distress. Head atraumatic normocephalic neck is supple chest rise symmetrical breath sounds clear. Heart: S1-S2. Abdomen soft bowel sounds p resent. Extremities with right shoulder dressing clean dry and intact. Left upper extremity PICC line just placed Assessment: 1. Infected right shoulder, status post revision 2. Morbid obesity 3. Depression Plan: Patient remained stable, continue present care, await for final cultures, anticipate treating with IV antibiotics for 6 weeks Consultation Date/Type/Reason Admit Date/Time Aug 07, 2018 at 10:11 Initial Consult Date Type of Consult id Date/Time of Note DATE: 08/08/18 TIME: 13:11 Exam/Review of Systems Exam Vitals Vital Signs Date Temp Pulse Resp B/P (MAP) Pulse Ox O2 O2 Flow FiO2 Time Delivery Rate 08/08/18 98.2 74 18 134/65 98 Nasal 2.0 07:48 (88) Cannula Intake and Output 08/07/18 08/07/18 08/08/18 1515:00 23:00 07:00 IntakeIntake Total 1000 ml 1090 ml 2200 ml OutputOutput Total 2500 ml 2000 ml BalanceBalance 1000 ml -1410 ml 200 ml Results Result Diagram: 08/08/18 0827 Results 24hrs Laboratory Tests Test 08/07/18 15:49 08/08/18 07:37 08/08/18 08:27 White Blood Count 4.8 # 5.2 Red Blood Count 3.40 #L 3.38 L Hemoglobin 8.3 #L 8.3 L Hematocrit 28.2 #L 28.0 L Mean Corpuscular Volume 82.9 82.8 Mean Corpuscular Hemoglobin 24.4 L 24.6 L Mean Corpuscular 29.4 L 29.6 L Hemoglobin Concent Red Cell Distribution Width 15.1 H 14.9 H Platelet Count 252 280 Mean Platelet Volume 9.1 9.9 Immature Granulocytes % 0.400 0.600 H Neutrophils % 84.4 H 88.2 H Lymphocytes % 10.1 L 7.6 L Monocytes % 3.9 3.4 Eosinophils % 1.0 0.2 Basophils % 0.2 0.0 Nucleated Red Blood Cells % 0.0 0.0 Immature Granulocytes # 0.020 0.030 Neutrophils # 4.1 4.6 Lymphocytes # 0.5 L 0.4 L Monocytes # 0.2 L 0.2 L Eosinophils # 0.1 0.0 Basophils # 0.0 0.0 Nucleated Red Blood Cells # 0.0 0.0 CBC Results Faxed/Phoned 1 *H Lab Scanned Report REFERENCE LAB Medications Medication Current Medications Gabapentin (Neurontin) 1,600 mg QHS PO Last administered on 08/07/18 21:57; Admin Dose 1,600 MG; Start 08/07/18 at 21:00 Levothyroxine Sodium (Synthroid) 75 mcg BEFORE BREAKFAST PO Last administered on 08/08/18 06:42; Admin Dose 75 MCG; Start 08/08/18 at 07:00 Pramipexole (Mirapex) 0.5 mg QAM PO Last administered on 08/08/18 08:37; Admin Dose 0.5 MG; Start 08/08/18 at 09:00 Pramipexole (Mirapex) 1.5 mg QPM PO Last administered on 08/07/18 21:56; Admin Dose 1.5 MG; Start 08/07/18 at 21:00 Vancomycin HCl 100 ml @ 100 mls/hr Q12H IVPB Last administered on 08/08/18 02:29; Admin Dose 100 MLS/HR; Start 08/08/18 at 02:00; Stop 08/08/18 at 14:59 Senna/Docusate Sodium (Senokot-S) 1 tab BID PO Last administered on 08/08/18 08:36; Admin Dose 1 TAB; Start 08/07/18 at 21:00 Simethicone (Mylicon) 80 mg TID PRN PO .GAS; Start 08/07/18 at 15:30 Magnesium Hydroxide (Milk Of Mag) 30 ml BID PRN PO .CONSTIPATION; Start 08/07/18 at 15:30 Loperamide HCl (Imodium Cap) 2 mg Q6H PRN PO .DIARRHEA; Start 08/07/18 at 15:30 Gabapentin (Neurontin) 300 mg HS PO Last administered on 08/07/18 21:56; Admin Dose 300 MG; Start 08/07/18 at 21:00 Acetaminophen (Tylenol Tab) 500 mg Q6 PO Last administered on 08/08/18 05:22; Admin Dose 500 MG; Start 08/07/18 at 18:00 Oxycodone HCl (Roxicodone) 15 mg Q4H PRN PO .PAIN Last administered on 08/08/18 06:42; Admin Dose 15 MG; Start 08/07/18 at 15:30 Oxycodone HCl (Roxicodone) 10 mg Q4H PRN PO .PAIN; Start 08/07/18 at 15:30 Oxycodone HCl (Roxicodone) 5 mg Q4H PRN PO .PAIN; Start 08/07/18 at 15:30 Hydromorphone HCl (Dilaudid) 1 mg Q4H PRN IV .BREAKTHROUGH PAIN Last administered on 08/07/18 23:59; Admin Dose 1 MG; Start 08/07/18 at 15:30 Ketorolac Tromethamine (Toradol) 15 mg Q6H PRN IV .PAIN Last administered on 08/08/18 09:52; Admin Dose 15 MG; Start 08/07/18 at 15:30 Ondansetron HCl (Zofran Inj) 4 mg Q6H PRN IV NAUSEA/VOMITING; Start 08/07/18 at 15:30 Diphenhydramine HCl (Benadryl) 25 mg Q6H PRN IV .PRURITUS; Start 08/07/18 at 15:30 Zolpidem Tartrate (Ambien) 10 mg HS PRN PO .INSOMNIA; Start 08/07/18 at 15:30 IV Flush (NS 3 ml) 3 ml per protocol IV ; Start 08/07/18 at 15:30 Naloxone HCl (Narcan) 0.2 mg Q2M PRN IV .RESP RATE; Start 08/07/18 at 15:30 Loratadine (Claritin) 10 mg DAILY PO Last administered on 08/08/18 08:37; Admin Dose 10 MG; Start 08/07/18 at 18:30 Doxepin HCl (Sinequan) 100 mg QHS PO Last administered on 08/07/18 21:56; Admin Dose 100 MG; Start 08/07/18 at 21:00 INOCENCIO LARRY NP Aug 08, 2018 13:12
[2018-08-08 15:30] VITALS: BP 138/68; PULSE 78; RESP 20
[2018-08-08] MEDS: HYDROmorphONE 1 MG/ML SYG IV PRN (18:13)
[2018-08-08 19:40] VITALS: BP 178/80; PULSE 81; RESP 18
[2018-08-08] MEDS: GABAPENTIN 400 MG CAP PO SCH (20:59)
[2018-08-08] MEDS: GABAPENTIN 300 MG CAP PO SCH (20:59)
[2018-08-08] MEDS: DOXEPIN 25 MG CAP PO SCH (21:00)
[2018-08-08] MEDS: PRAMIPEXOLE 1 MG TAB PO SCH (21:10)
[2018-08-09] MEDS: ACETAMINOPHEN 500 MG TAB PO SCH ×4 (00:09→17:32)
[2018-08-09] MEDS: HYDROmorphONE 1 MG/ML SYG IV PRN (00:13)
[2018-08-09 01:15] VITALS: BP 114/70; PULSE 70; RESP 20
[2018-08-09] MEDS: oxyCODONE 5 MG TAB PO PRN ×4 (04:34→21:42)
[2018-08-09] MEDS: LEVOTHYROXINE 75 MCG TAB PO SCH (04:34)
[2018-08-09 04:44] VITALS: BP 150/80; RESP 19
[2018-08-09 07:54] VITALS: BP 141/61; PULSE 71; RESP 16
[2018-08-09] MEDS: LORATADINE 10 MG TAB PO SCH (08:39)
[2018-08-09] MEDS: SENNA/DOCUSATE NA (8.6MG/50MG) TAB PO SCH ×2 (09:00→20:38)
--- NOTE | 2018-08-09 09:26 | PN ---
Date/Time of Note Date/Time of Note DATE: 08/09/18 TIME: 09:24 Subjective Awake and alert. Salcido discontinued. Wound appears dry at this point. Objective Vitals Vital Signs Date Temp Pulse Resp B/P (MAP) Pulse Ox O2 O2 Flow FiO2 Time Delivery Rate 08/09/18 98.0 71 16 141/61 100 Room Air 07:54 (87) 08/08/18 2.0 15:30 Intake and Output 08/08/18 08/08/18 08/09/18 1515:00 23:00 07:00 IntakeIntake Total 740 ml 620 ml 660 ml OutputOutput Total 1800 ml 400 ml 2300 ml BalanceBalance -1060 ml 220 ml -1640 ml His wound has some serous drainage. Smaller amount than last night. He is neurologically intact. His wound is otherwise intact with no erythema edema or warmth. There are no signs of DVT. Results Result Diagram: 08/08/18 0827 Medications Medications Current Medications Gabapentin (Neurontin) 1,600 mg QHS PO Last administered on 08/08/18at 20:59; Admin Dose 1,600 MG; Start 08/07/18 at 21:00 Levothyroxine Sodium (Synthroid) 75 mcg BEFORE BREAKFAST PO Last administered on 08/09/18 04:34; Admin Dose 75 MCG; Start 08/08/18 at 07:00 Pramipexole (Mirapex) 0.5 mg QAM PO Last administered on 08/08/18 08:37; Admin Dose 0.5 MG; Start 08/08/18 at 09:00 Pramipexole (Mirapex) 1.5 mg QPM PO Last administered on 08/08/18 21:10; Admin Dose 1.5 MG; Start 08/07/18 at 21:00 Senna/Docusate Sodium (Senokot-S) 1 tab BID PO Last administered on 08/08/18 08:36; Admin Dose 1 TAB; Start 08/07/18 at 21:00 Simethicone (Mylicon) 80 mg TID PRN PO .GAS; Start 08/07/18 at 15:30 Magnesium Hydroxide (Milk Of Mag) 30 ml BID PRN PO .CONSTIPATION; Start 08/07/18 at 15:30 Loperamide HCl (Imodium Cap) 2 mg Q6H PRN PO .DIARRHEA; Start 08/07/18 at 15:30 Gabapentin (Neurontin) 300 mg HS PO Last administered on 08/08/18at 20:59; Admin Dose 300 MG; Start 08/07/18 at 21:00 Acetaminophen (Tylenol Tab) 500 mg Q6 PO Last administered on 08/09/18 05:21; Admin Dose 500 MG; Start 08/07/18 at 18:00 Oxycodone HCl (Roxicodone) 15 mg Q4H PRN PO .PAIN Last administered on 08/09/18 08:39; Admin Dose 15 MG; Start 08/07/18 at 15:30 Oxycodone HCl (Roxicodone) 10 mg Q4H PRN PO .PAIN; Start 08/07/18 at 15:30 Oxycodone HCl (Roxicodone) 5 mg Q4H PRN PO .PAIN; Start 08/07/18 at 15:30 Hydromorphone HCl (Dilaudid) 1 mg Q4H PRN IV .BREAKTHROUGH PAIN Last administered on 08/09/18at 00:13; Admin Dose 1 MG; Start 08/07/18 at 15:30 Ketorolac Tromethamine (Toradol) 15 mg Q6H PRN IV .PAIN Last administered on 08/08/18 09:52; Admin Dose 15 MG; Start 08/07/18 at 15:30 Ondansetron HCl (Zofran Inj) 4 mg Q6H PRN IV NAUSEA/VOMITING; Start 08/07/18 at 15:30 Diphenhydramine HCl (Benadryl) 25 mg Q6H PRN IV .PRURITUS; Start 08/07/18 at 15:30 Zolpidem Tartrate (Ambien) 10 mg HS PRN PO .INSOMNIA; Start 08/07/18 at 15:30 IV Flush (NS 3 ml) 3 ml per protocol IV ; Start 08/07/18 at 15:30 Naloxone HCl (Narcan) 0.2 mg Q2M PRN IV .RESP RATE; Start 08/07/18 at 15:30 Loratadine (Claritin) 10 mg DAILY PO Last administered on 08/09/18 08:39; Admin Dose 10 MG; Start 08/07/18 at 18:30 Doxepin HCl (Sinequan) 100 mg QHS PO Last administered on 08/08/18at 21:00; Admin Dose 100 MG; Start 08/07/18 at 21:00 IV Flush (NS 10 ml) 10 ml PRN PRN IV IV PROTOCOL; Start 08/08/18 at 21:00 VTE Prophylaxis Risk score (from [facility] [place])>0 risk: 8 SCD applied (from [facility] [place]): Yes Lines/Catheters IV Catheter Type: PICC Line Central line still needed: Yes Salcido in Place: No Assessment/Plan Assessment/Plan Assessment: Status post irrigation and debridement with removal of total shoulder Plan: Await clearance by infectious disease for home therapy. Discharge pending DANILO RIVERA MD Aug 09, 2018 09:26
[2018-08-09] MEDS: PRAMIPEXOLE 0.25 MG TAB PO SCH (10:52)
[2018-08-09 14:58] VITALS: BP 133/65; PULSE 78; RESP 17
--- NOTE | 2018-08-09 16:34 | CONS ---
Assessment/Plan Assessment/Plan Hospital Course (Demo Recall) ID PROGRESS NOTE CURRENT ABX: DAY # >START ERTAPENEM today + re=start Vanco IV s/p Vanco IV 24H INTERVAL SUMMARY * Patient is eager to DC home, PICC Placed yesterday == per ID colleague note plan is to DC on Vanco IV x 6 weeks -- yet Vanco IV was not ordered for continual dose per pharmacy -- there are no renal labs, Vanco iv not continued. * Now growing GNR -- Patient says his can give ABX; I explained to patient that we do not have the final ID on the GNR hence it is not in his best interest to go home today; furthermore it is late in the day and it may be difficult to arrange home health at this time. He also has a PCN/Keflex allergy and needs to have Ertapenem x 6 weeks * Patient is noted by nurses to be touching his surgical wound site with his "dirty hands" -- I explained to him that he is growing GNR which are from his colon -- he picked it up from touching the wound with his hands and needs to practice diligent hand hygiene frequent hand washing during the day. Explained that when people do not wash their hands after using. MICRO * 08/07/18 RIGHT SHOULDER ANAEROBES (-) to date * 08/07/18 RIGHT SHOULDER TUBE #3 CX: GRAM STAIN Final POLYMORPH. LEUKOCYTE NONE SEEN . NO ORGANISM SEEN WOUND CULTURE Preliminary Organism 1 GRAM NEGATIVE JOHANNA QUANTITY ISOLATED FROM BROTH ONLY TUBE #3 No growth after 1 day * 08/07/18 RIGHT SHOULDER TUBE #1 CX: GRAM STAIN Final POLYMORPH. LEUKOCYTE NONE SEEN . NO ORGANISM SEEN WOUND CULTURE Preliminary Organism 1 GRAM NEGATIVE JOHANNA QUANTITY ISOLATED FROM BROTH ONLY TUBE #1 No growth after 1 day PHYSICAL EXAMINATION: GENERAL: Afebrile, VSS, Obese M HEENT: AT, NC, anicteric NECK: Grossly normal CHEST: Equal chest rise bilaterally = without dyspnea HEART: Pulse RRR ABDOMEN: Soft / ND EXTREMITIES: Warm, RUEXT shoulder DSG C/D/I SKIN: No rash, no diaphoresis, multiple decubs ID ASSESSMENT 68 yo M admit with: 1. Infected right shoulder, status post revision 2. Morbid obesity 3. Depression 4. Poor hygiene -- touching his surgical wound with his "dirty hands" ABX ALLERGIES: PCN/KEFLEX/LATEX INVASIVES: PICC LUEXT CURRENT ABX: DAY # =>RE-START Vanco IV + Start ERTAPENEM ID RECOMMENDATIONS/PLAN: 1. Dr. Berman is recommending RE-START Vanco IV + Start ERTAPENEM = OK to give trial dose today w/ PCN allergy 2. I educated the patient and the RN about ~<3% cross reactivity Carbapenem and PCN/Keflex. * Patient agrees to trial of Ertapenem and will notify the RN immediately for adverse SE such at mouth itching/edema, rash. 3. He may DC home when cleared by primary admitting MD with HH on the following ABX * Vanco IV 1GM Q24H with continued dose per outpatient pharmacy x 6 weeks and; * Ertapenem 1gm IV daily x 6weeks 4. HAND HYGIENE STRONGLY ADVOCATED * Patient is noted by nurses to be touching his surgical wound site with his "dirty hands" -- I explained to him that he is growing GNR which are from his colon -- he picked it up from touching the wound with his hands and needs to practice diligent hand hygiene frequent hand washing during the day. Explained that when people do not wash their hands after using. 5. Renal lab and Vanco random level ordered . Consultation Date/Type/Reason Admit Date/Time Aug 07, 2018 at 10:11 Initial Consult Date Date/Time of Note DATE: 08/09/18 TIME: 16:30 Exam/Review of Systems Exam Vitals Vital Signs Date Temp Pulse Resp B/P (MAP) Pulse Ox O2 O2 Flow FiO2 Time Delivery Rate 08/09/18 97.6 78 17 133/65 96 Room Air 14:58 (87) 08/08/18 2.0 15:30 Intake and Output 08/08/18 08/08/18 08/09/18 1515:00 23:00 07:00 IntakeIntake Total 740 ml 620 ml 660 ml OutputOutput Total 1800 ml 400 ml 2300 ml BalanceBalance -1060 ml 220 ml -1640 ml Results Result Diagram: 08/08/18 0827 Medications Medication Current Medications Gabapentin (Neurontin) 1,600 mg QHS PO Last administered on 08/08/18at 20:59; Admin Dose 1,600 MG; Start 08/07/18 at 21:00 Levothyroxine Sodium (Synthroid) 75 mcg BEFORE BREAKFAST PO Last administered on 08/09/18 04:34; Admin Dose 75 MCG; Start 08/08/18 at 07:00 Pramipexole (Mirapex) 0.5 mg QAM PO Last administered on 08/09/18 10:52; Admin Dose 0.5 MG; Start 08/08/18 at 09:00 Pramipexole (Mirapex) 1.5 mg QPM PO Last administered on 08/08/18 21:10; Admin Dose 1.5 MG; Start 08/07/18 at 21:00 Senna/Docusate Sodium (Senokot-S) 1 tab BID PO Last administered on 08/08/18 08:36; Admin Dose 1 TAB; Start 08/07/18 at 21:00 Simethicone (Mylicon) 80 mg TID PRN PO .GAS; Start 08/07/18 at 15:30 Magnesium Hydroxide (Milk Of Mag) 30 ml BID PRN PO .CONSTIPATION; Start 08/07/18 at 15:30 Loperamide HCl (Imodium Cap) 2 mg Q6H PRN PO .DIARRHEA; Start 08/07/18 at 15:30 Gabapentin (Neurontin) 300 mg HS PO Last administered on 08/08/18 20:59; Admin Dose 300 MG; Start 08/07/18 at 21:00 Acetaminophen (Tylenol Tab) 500 mg Q6 PO Last administered on 08/09/18 12:07; Admin Dose 500 MG; Start 08/07/18 at 18:00 Oxycodone HCl (Roxicodone) 15 mg Q4H PRN PO .PAIN Last administered on 08/09/18 16:00; Admin Dose 15 MG; Start 08/07/18 at 15:30 Oxycodone HCl (Roxicodone) 10 mg Q4H PRN PO .PAIN; Start 08/07/18 at 15:30 Oxycodone HCl (Roxicodone) 5 mg Q4H PRN PO .PAIN; Start 08/07/18 at 15:30 Hydromorphone HCl (Dilaudid) 1 mg Q4H PRN IV .BREAKTHROUGH PAIN Last administered on 08/09/18 00:13; Admin Dose 1 MG; Start 08/07/18 at 15:30 Ketorolac Tromethamine (Toradol) 15 mg Q6H PRN IV .PAIN Last administered on 08/08/18at 09:52; Admin Dose 15 MG; Start 08/07/18 at 15:30 Ondansetron HCl (Zofran Inj) 4 mg Q6H PRN IV NAUSEA/VOMITING; Start 08/07/18 at 15:30 Diphenhydramine HCl (Benadryl) 25 mg Q6H PRN IV .PRURITUS; Start 08/07/18 at 15:30 Zolpidem Tartrate (Ambien) 10 mg HS PRN PO .INSOMNIA; Start 08/07/18 at 15:30 IV Flush (NS 3 ml) 3 ml per protocol IV ; Start 08/07/18 at 15:30 Naloxone HCl (Narcan) 0.2 mg Q2M PRN IV .RESP RATE; Start 08/07/18 at 15:30 Loratadine (Claritin) 10 mg DAILY PO Last administered on 08/09/18at 08:39; Admin Dose 10 MG; Start 08/07/18 at 18:30 Doxepin HCl (Sinequan) 100 mg QHS PO Last administered on 08/08/18at 21:00; Admin Dose 100 MG; Start 08/07/18 at 21:00 IV Flush (NS 10 ml) 10 ml PRN PRN IV IV PROTOCOL; Start 08/08/18 at 21:00 NÉSTOR MAHONEY NP Aug 09, 2018 16:34
[2018-08-09] MEDS ORDERED: VANCOMYCIN IV PER PHARMACY XX SCH (17:30)
[2018-08-09 19:25] VITALS: BP 119/54; PULSE 82; RESP 20
[2018-08-09] MEDS ORDERED: VANCOMYCIN HCL 2 GM in SOD CHLORIDE 0.9% 500 ML IVPB SCH (20:30)
[2018-08-09] MEDS: ERTAPENEM SODIUM 1 GM in SOD CHLORIDE 0.9% 100 ML IVPB SCH (20:37)
[2018-08-09] MEDS: DOXEPIN 25 MG CAP PO SCH (20:37)
[2018-08-09] MEDS: GABAPENTIN 300 MG CAP PO SCH (20:38)
[2018-08-09] MEDS: GABAPENTIN 400 MG CAP PO SCH (20:38)
[2018-08-09] MEDS: PRAMIPEXOLE 1 MG TAB PO SCH (20:38)
[2018-08-10] MEDS: ACETAMINOPHEN 500 MG TAB PO SCH ×4 (00:25→18:00)
[2018-08-10 02:35] VITALS: BP 133/63; PULSE 73; RESP 20
[2018-08-10] MEDS: LEVOTHYROXINE 75 MCG TAB PO SCH (06:36)
[2018-08-10 08:00] VITALS: BP 154/77; PULSE 73; RESP 18
--- NOTE | 2018-08-10 08:54 | PN ---
Date/Time of Note Date/Time of Note DATE: 08/10/18 TIME: 08:53 Subjective Awake and alert. ID input appreciated Objective Vitals Vital Signs Date Temp Pulse Resp B/P (MAP) Pulse Ox O2 O2 Flow FiO2 Time Delivery Rate 08/10/18 97.8 73 18 154/77 98 08:00 (102) 08/10/18 Room Air 02:35 08/08/18 2.0 15:30 Intake and Output 08/09/18 08/09/18 08/10/18 1515:00 23:00 07:00 IntakeIntake Total 800 ml 450 ml 500 ml BalanceBalance 800 ml 450 ml 500 ml Wound with serous drainage only. NO signs DVT. NV intact Results Result Diagram: 08/08/18 0827 08/09/18 1726 Medications Medications Current Medications Gabapentin (Neurontin) 1,600 mg QHS PO Last administered on 08/09/18 20:38; Admin Dose 1,600 MG; Start 08/07/18 at 21:00 Levothyroxine Sodium (Synthroid) 75 mcg BEFORE BREAKFAST PO Last administered on 08/10/18 06:36; Admin Dose 75 MCG; Start 08/08/18 at 07:00 Pramipexole (Mirapex) 0.5 mg QAM PO Last administered on 08/09/18 10:52; Admin Dose 0.5 MG; Start 08/08/18 at 09:00 Pramipexole (Mirapex) 1.5 mg QPM PO Last administered on 08/09/18 20:38; Admin Dose 1.5 MG; Start 08/07/18 at 21:00 Senna/Docusate Sodium (Senokot-S) 1 tab BID PO Last administered on 08/09/18 20:38; Admin Dose 1 TAB; Start 08/07/18 at 21:00 Simethicone (Mylicon) 80 mg TID PRN PO .GAS; Start 08/07/18 at 15:30 Magnesium Hydroxide (Milk Of Mag) 30 ml BID PRN PO .CONSTIPATION; Start 08/07/18 at 15:30 Loperamide HCl (Imodium Cap) 2 mg Q6H PRN PO .DIARRHEA; Start 08/07/18 at 15:30 Gabapentin (Neurontin) 300 mg HS PO Last administered on 08/09/18 20:38; Admin Dose 300 MG; Start 08/07/18 at 21:00 Acetaminophen (Tylenol Tab) 500 mg Q6 PO Last administered on 08/10/18 06:45; Admin Dose 500 MG; Start 08/07/18 at 18:00 Oxycodone HCl (Roxicodone) 15 mg Q4H PRN PO .PAIN Last administered on 08/09/18 21:42; Admin Dose 15 MG; Start 08/07/18 at 15:30 Oxycodone HCl (Roxicodone) 10 mg Q4H PRN PO .PAIN; Start 08/07/18 at 15:30 Oxycodone HCl (Roxicodone) 5 mg Q4H PRN PO .PAIN; Start 08/07/18 at 15:30 Hydromorphone HCl (Dilaudid) 1 mg Q4H PRN IV .BREAKTHROUGH PAIN Last administered on 08/09/18 00:13; Admin Dose 1 MG; Start 08/07/18 at 15:30 Ketorolac Tromethamine (Toradol) 15 mg Q6H PRN IV .PAIN Last administered on 08/08/18 09:52; Admin Dose 15 MG; Start 08/07/18 at 15:30 Ondansetron HCl (Zofran Inj) 4 mg Q6H PRN IV NAUSEA/VOMITING; Start 08/07/18 at 15:30 Diphenhydramine HCl (Benadryl) 25 mg Q6H PRN IV .PRURITUS; Start 08/07/18 at 15:30 Zolpidem Tartrate (Ambien) 10 mg HS PRN PO .INSOMNIA; Start 08/07/18 at 15:30 IV Flush (NS 3 ml) 3 ml per protocol IV ; Start 08/07/18 at 15:30 Naloxone HCl (Narcan) 0.2 mg Q2M PRN IV .RESP RATE; Start 08/07/18 at 15:30 Loratadine (Claritin) 10 mg DAILY PO Last administered on 08/09/18 08:39; Admin Dose 10 MG; Start 08/07/18 at 18:30 Doxepin HCl (Sinequan) 100 mg QHS PO Last administered on 08/09/18 20:37; Admin Dose 100 MG; Start 08/07/18 at 21:00 IV Flush (NS 10 ml) 10 ml PRN PRN IV IV PROTOCOL; Start 08/08/18 at 21:00 Vancomycin HCl (Vanco Iv Per Pharmacy) VANCOMYCIN PER PHARMACY PER PROTOCOL XX ; Start 08/09/18 at 17:30; Stop 09/20/18 at 17:29 Ertapenem 1 gm/ Sodium Chloride 100 ml @ 200 mls/hr Q24H IVPB Last administered on 08/09/18at 20:37; Admin Dose 200 MLS/HR; Start 08/09/18 at 20:00; Stop 09/20/18 at 19:59 Vancomycin HCl 1.75 gm/Sodium Chloride 500 ml @ 125 mls/hr Q12H IVPB ; Start 08/10/18 at 08:30 VTE Pro[place] [facility] [place]: 8 [place]CD applied [place] [facility] [place] Yes Lines/Catheters IV Catheter Type: PICC Line Central line still needed: Yes Salcido in Place: No Assessment/Plan Hospital Course A: s/p infected total shoulder P: Ok for discharge from my perspective. Follow up in two weeks in office. Dressing changes daily as needed. DANILO RIVERA MD Aug 10, 2018 08:54
[2018-08-10] MEDS: VANCOMYCIN HCL 1.75 GM in SOD CHLORIDE 0.9% 500 ML IVPB SCH ×2 (09:02→22:39)
[2018-08-10] MEDS: LORATADINE 10 MG TAB PO SCH (09:03)
[2018-08-10] MEDS: SENNA/DOCUSATE NA (8.6MG/50MG) TAB PO SCH ×2 (09:04→21:27)
[2018-08-10] MEDS: PRAMIPEXOLE 0.25 MG TAB PO SCH (09:04)
[2018-08-10] MEDS: oxyCODONE 5 MG TAB PO PRN ×2 (11:16→18:11)
--- NOTE | 2018-08-10 13:27 | CONS ---
Assessment/Plan Assessment/Plan Hospital Course (Demo Recall) ID PROGRESS NOTE CURRENT ABX: DAY # >START ERTAPENEM today + re=start Vanco IV s/p Vanco IV 24H INTERVAL SUMMARY * Patient is eager to DC home, PICC Placed yesterday == per ID colleague note plan is to DC on Vanco IV x 6 weeks -- yet Vanco IV was not ordered for continual dose per pharmacy -- there are no renal labs, Vanco iv not continued. * Now growing GNR -- Patient says his can give ABX; I explained to patient that we do not have the final ID on the GNR hence it is not in his best interest to go home today; furthermore it is late in the day and it may be difficult to arrange home health at this time. He also has a PCN/Keflex allergy and needs to have Ertapenem x 6 weeks * Patient is noted by nurses to be touching his surgical wound site with his "dirty hands" -- I explained to him that he is growing GNR which are from his colon -- he picked it up from touching the wound with his hands and needs to practice diligent hand hygiene frequent hand washing during the day. Explained that when people do not wash their hands after using. MICRO * 08/07/18 RIGHT SHOULDER ANAEROBES (-) to date * 08/07/18 RIGHT SHOULDER TUBE #3 CX: WOUND CULTURE Final Organism 1 ESCHERICHIA COLI QUANTITY ISOLATED FROM BROTH ONLY TUBE #3 Susceptibilities previously reported, see prior culture report of same specimen site. * 08/07/18 RIGHT SHOULDER TUBE #1 CX: WOUND CULTURE Final Organism 1 ESCHERICHIA COLI QUANTITY ISOLATED FROM BROTH ONLY TUBE #1 E COLI M.I.C. RX --------- --- AMPICILLIN <=2 S CEFAZOLIN I CEFOTAXIME S CIPROFLOXACIN <=0.25 S GENTAMICIN <=1 S LEVOFLOXACIN <=0.12 S TOBRAMYCIN <=1 S TRIMETHOPRIM/SULFAMETHOXAZOLE <=20 S PHYSICAL EXAMINATION: GENERAL: Afebrile, VSS, Obese M HEENT: AT, NC, anicteric NECK: Grossly normal CHEST: Equal chest rise bilaterally = without dyspnea HEART: Pulse RRR ABDOMEN: Soft / ND EXTREMITIES: Warm, RUEXT shoulder DSG C/D/I SKIN: No rash, no diaphoresis, multiple decubs ID ASSESSMENT 68 yo M admit with: 1. Infected right shoulder, status post revision * WOUND CULTURE Final Organism 1 ESCHERICHIA COLI 2. Morbid obesity 3. Depression 4. Poor hygiene -- touching his surgical wound with his "dirty hands" ABX ALLERGIES: PCN/KEFLEX/LATEX INVASIVES: PICC LUEXT CURRENT ABX: DAY # =>Vanco IV + ERTAPENEM ID RECOMMENDATIONS/PLAN: 1. Dr. Berman is recommending RE-START Vanco IV + Start ERTAPENEM = OK to give trial dose today w/ PCN allergy 2. I educated the patient and the RN about ~<3% cross reactivity Carbapenem and PCN/Keflex. * Patient agrees to trial of Ertapenem and will notify the RN immediately for adverse SE such at mouth itching/edema, rash. 3. He may DC home when cleared by primary admitting MD with HH on the following ABX * Vanco IV 1GM Q24H with continued dose per outpatient pharmacy x 6 weeks and; * Ertapenem 1gm IV daily x 6weeks 4. HAND HYGIENE STRONGLY ADVOCATED * Patient is noted by nurses to be touching his surgical wound site with his "dirty hands" -- I explained to him that he is growing GNR which are from his colon -- he picked it up from touching the wound with his hands and needs to practice diligent hand hygiene frequent hand washing during the day. Explained that when people do not wash their hands after using. 5. Renal lab and Vanco random level ordered . Consultation Date/Type/Reason Admit Date/Time Aug 07, 2018 at 10:11 Initial Consult Date Date/Time of Note DATE: 08/10/18 TIME: 13:19 Exam/Review of Systems Exam Vitals Vital Signs Date Temp Pulse Resp B/P (MAP) Pulse Ox O2 O2 Flow FiO2 Time Delivery Rate 08/10/18 97.8 73 18 154/77 98 08:00 (102) 08/10/18 Room Air 02:35 08/08/18 2.0 15:30 Intake and Output 08/09/18 08/09/18 08/10/18 1515:00 23:00 07:00 IntakeIntake Total 800 ml 450 ml 500 ml BalanceBalance 800 ml 450 ml 500 ml Results Result Diagram: 08/08/18 0827 08/09/18 1726 Results 24hrs Laboratory Tests Test 08/09/18 17:26 Sodium Level 140 Potassium Level 4.0 Chloride Level 106 Carbon Dioxide Level 30 Anion Gap 4 L Blood Urea Nitrogen 14 Creatinine 0.83 Glucose Level 92 Calcium Level 9.1 Phosphorus Level 3.6 Albumin 3.1 L Random Vancomycin Level < 5.0 Medications Medication Current Medications Gabapentin (Neurontin) 1,600 mg QHS PO Last administered on 08/09/18 20:38; Admin Dose 1,600 MG; Start 08/07/18 at 21:00 Levothyroxine Sodium (Synthroid) 75 mcg BEFORE BREAKFAST PO Last administered on 08/10/18 06:36; Admin Dose 75 MCG; Start 08/08/18 at 07:00 Pramipexole (Mirapex) 0.5 mg QAM PO Last administered on 08/10/18 09:04; Admin Dose 0.5 MG; Start 08/08/18 at 09:00 Pramipexole (Mirapex) 1.5 mg QPM PO Last administered on 08/09/18 20:38; Admin Dose 1.5 MG; Start 08/07/18 at 21:00 Senna/Docusate Sodium (Senokot-S) 1 tab BID PO Last administered on 08/10/18 09:04; Admin Dose 1 TAB; Start 08/07/18 at 21:00 Simethicone (Mylicon) 80 mg TID PRN PO .GAS; Start 08/07/18 at 15:30 Magnesium Hydroxide (Milk Of Mag) 30 ml BID PRN PO .CONSTIPATION; Start 08/07/18 at 15:30 Loperamide HCl (Imodium Cap) 2 mg Q6H PRN PO .DIARRHEA; Start 08/07/18 at 15:30 Gabapentin (Neurontin) 300 mg HS PO Last administered on 08/09/18 20:38; Admin Dose 300 MG; Start 08/07/18 at 21:00 Acetaminophen (Tylenol Tab) 500 mg Q6 PO Last administered on 08/10/18 13:16; Admin Dose 500 MG; Start 08/07/18 at 18:00 Oxycodone HCl (Roxicodone) 15 mg Q4H PRN PO .PAIN Last administered on 08/10/18 11:16; Admin Dose 15 MG; Start 08/07/18 at 15:30 Oxycodone HCl (Roxicodone) 10 mg Q4H PRN PO .PAIN; Start 08/07/18 at 15:30 Oxycodone HCl (Roxicodone) 5 mg Q4H PRN PO .PAIN; Start 08/07/18 at 15:30 Hydromorphone HCl (Dilaudid) 1 mg Q4H PRN IV .BREAKTHROUGH PAIN Last administered on 08/09/18at 00:13; Admin Dose 1 MG; Start 08/07/18 at 15:30 Ketorolac Tromethamine (Toradol) 15 mg Q6H PRN IV .PAIN Last administered on 08/08/18at 09:52; Admin Dose 15 MG; Start 08/07/18 at 15:30 Ondansetron HCl (Zofran Inj) 4 mg Q6H PRN IV NAUSEA/VOMITING; Start 08/07/18 at 15:30 Diphenhydramine HCl (Benadryl) 25 mg Q6H PRN IV .PRURITUS; Start 08/07/18 at 15:30 Zolpidem Tartrate (Ambien) 10 mg HS PRN PO .INSOMNIA; Start 08/07/18 at 15:30 IV Flush (NS 3 ml) 3 ml per protocol IV ; Start 08/07/18 at 15:30 Naloxone HCl (Narcan) 0.2 mg Q2M PRN IV .RESP RATE; Start 08/07/18 at 15:30 Loratadine (Claritin) 10 mg DAILY PO Last administered on 08/10/18at 09:03; Adm in Dose 10 MG; Start 08/07/18 at 18:30 Doxepin HCl (Sinequan) 100 mg QHS PO Last administered on 08/09/18at 20:37; Admin Dose 100 MG; Start 08/07/18 at 21:00 IV Flush (NS 10 ml) 10 ml PRN PRN IV IV PROTOCOL; Start 08/08/18 at 21:00 Vancomycin HCl (Vanco Iv Per Pharmacy) VANCOMYCIN PER PHARMACY PER PROTOCOL XX ; Start 08/09/18 at 17:30; Stop 09/20/18 at 17:29 Ertapenem 1 gm/ Sodium Chloride 100 ml @ 200 mls/hr Q24H IVPB Last administered on 08/09/18at 20:37; Admin Dose 200 MLS/HR; Start 08/09/18 at 20:00; Stop 09/20/18 at 19:59 Vancomycin HCl 1.75 gm/Sodium Chloride 500 ml @ 125 mls/hr Q12H IVPB Last administered on 08/10/18at 09:02; Admin Dose 125 MLS/HR; Start 08/10/18 at 08:30 NÉSTOR MAHONEY NP Aug 10, 2018 13:27
[2018-08-10 14:56] VITALS: BP 177/82; PULSE 84; RESP 18
[2018-08-10 15:56] VITALS: BP 175/81
[2018-08-10] MEDS ORDERED: hydrALAzine 20 MG INJ IV ONE (17:00)
[2018-08-10 18:12] VITALS: BP 144/67; RESP 81
[2018-08-10 20:30] VITALS: BP 126/63; PULSE 89; RESP 18
[2018-08-10] MEDS: GABAPENTIN 300 MG CAP PO SCH (21:26)
[2018-08-10] MEDS: GABAPENTIN 400 MG CAP PO SCH (21:27)
[2018-08-10] MEDS: DOXEPIN 25 MG CAP PO SCH (21:27)
[2018-08-10] MEDS: PRAMIPEXOLE 1 MG TAB PO SCH (21:48)
[2018-08-10] MEDS: ERTAPENEM SODIUM 1 GM in SOD CHLORIDE 0.9% 100 ML IVPB SCH (21:48)
[2018-08-11] MEDS: oxyCODONE 5 MG TAB PO PRN ×2 (02:10→16:00)
[2018-08-11 02:44] VITALS: BP 176/81; PULSE 78; RESP 18
[2018-08-11 04:27] VITALS: BP 173/80
[2018-08-11] MEDS: HYDROmorphONE 1 MG/ML SYG IV PRN (04:49)
[2018-08-11] MEDS: LEVOTHYROXINE 75 MCG TAB PO SCH (05:42)
[2018-08-11] MEDS: ACETAMINOPHEN 500 MG TAB PO SCH ×3 (05:43→11:43)
--- NOTE | 2018-08-11 06:40 | PN ---
Date/Time of Note Date/Time of Note DATE: 08/11/18 TIME: 06:39 Subjective Doing better this morning. Less pain. There has been some serous drainage. Objective Vitals Vital Signs Date Temp Pulse Resp B/P (MAP) Pulse Ox O2 O2 Flow FiO2 Time Delivery Rate 08/11/18 173/80 04:27 (111) 08/11/18 98.1 78 18 97 02:44 08/10/18 Room Air 02:35 08/08/18 2.0 15:30 Intake and Output 08/10/18 08/10/18 08/11/18 1414:59 22:59 06:59 IntakeIntake Total 500 ml 200 ml 250 ml BalanceBalance 500 ml 200 ml 250 ml Wound is clean. There is a superficial serous drainage. The dressing change was undertaken and the wound appeared well-healed with the exception of the superior aspect which is a small area of opening. New Steri-Strips were applied. There is no purulence, warmth or erythema. He is neurologically intact. There are no signs of DVT. Results Result Diagram: 08/08/1827 08/09/18 1726 Medications Medications Current Medications Gabapentin (Neurontin) 1,600 mg QHS PO Last administered on 08/10/18 21:27; Admin Dose 1,600 MG; Start 08/07/18 at 21:00 Levothyroxine Sodium (Synthroid) 75 mcg BEFORE BREAKFAST PO Last administered on 08/11/18 05:42; Admin Dose 75 MCG; Start 08/08/18 at 07:00 Pramipexole (Mirapex) 0.5 mg QAM PO Last administered on 08/10/18 09:04; Admin Dose 0.5 MG; Start 08/08/18 at 09:00 Pramipexole (Mirapex) 1.5 mg QPM PO Last administered on 08/10/18 21:48; Admin Dose 1.5 MG; Start 08/07/18 at 21:00 Senna/Docusate Sodium (Senokot-S) 1 tab BID PO Last administered on 08/10/18 21:27; Admin Dose 1 TAB; Start 08/07/18 at 21:00 Simethicone (Mylicon) 80 mg TID PRN PO .GAS; Start 08/07/18 at 15:30 Magnesium Hydroxide (Milk Of Mag) 30 ml BID PRN PO .CONSTIPATION; Start 08/07/18 at 15:30 Loperamide HCl (Imodium Cap) 2 mg Q6H PRN PO .DIARRHEA; Start 08/07/18 at 15:30 Gabapentin (Neurontin) 300 mg HS PO Last administered on 08/10/18 21:26; Admin Dose 300 MG; Start 08/07/18 at 21:00 Acetaminophen (Tylenol Tab) 500 mg Q6 PO Last administered on 08/11/18at 05:43; Admin Dose 500 MG; Start 08/07/18 at 18:00 Oxycodone HCl (Roxicodone) 15 mg Q4H PRN PO .PAIN Last administered on 08/10/18at 18:11; Admin Dose 15 MG; Start 08/07/18 at 15:30 Oxycodone HCl (Roxicodone) 10 mg Q4H PRN PO .PAIN Last administered on 08/11/18at 02:10; Admin Dose 10 MG; Start 08/07/18 at 15:30 Oxycodone HCl (Roxicodone) 5 mg Q4H PRN PO .PAIN; Start 08/07/18 at 15:30 Hydromorphone HCl (Dilaudid) 1 mg Q4H PRN IV .BREAKTHROUGH PAIN Last administered on 08/11/18 04:49; Admin Dose 1 MG; Start 08/07/18 at 15:30 Ketorolac Tromethamine (Toradol) 15 mg Q6H PRN IV .PAIN Last administered on 08/08/18 09:52; Admin Dose 15 MG; Start 08/07/18 at 15:30 Ondansetron HCl (Zofran Inj) 4 mg Q6H PRN IV NAUSEA/VOMITING; Start 08/07/18 at 15:30 Diphenhydramine HCl (Benadryl) 25 mg Q6H PRN IV .PRURITUS; Start 08/07/18 at 15:30 Zolpidem Tartrate (Ambien) 10 mg HS PRN PO .INSOMNIA; Start 08/07/18 at 15:30 IV Flush (NS 3 ml) 3 ml per protocol IV ; Start 08/07/18 at 15:30 Naloxone HCl (Narcan) 0.2 mg Q2M PRN IV .RESP RATE; Start 08/07/18 at 15:30 Loratadine (Claritin) 10 mg DAILY PO Last administered on 08/10/18at 09:03; Admin Dose 10 MG; Start 08/07/18 at 18:30 Doxepin HCl (Sinequan) 100 mg QHS PO Last administered on 08/10/18at 21:27; Admin Dose 100 MG; Start 08/07/18 at 21:00 IV Flush (NS 10 ml) 10 ml PRN PRN IV IV PROTOCOL; Start 08/08/18 at 21:00 Vancomycin HCl (Vanco Iv Per Pharmacy) VANCOMYCIN PER PHARMACY PER PROTOCOL XX ; Start 08/09/18 at 17:30; Stop 09/20/18 at 17:29 Ertapenem 1 gm/ Sodium Chloride 100 ml @ 200 mls/hr Q24H IVPB Last administered on 08/10/18at 21:48; Admin Dose 200 MLS/HR; Start 08/09/18 at 20:00; Stop 09/20/18 at 19:59 Vancomycin HCl 1.75 gm/Sodium Chloride 500 ml @ 125 mls/hr Q12H IVPB Last administered on 08/10/18at 22:39; Admin Dose 125 MLS/HR; Start 08/10/18 at 08:30 Miscellaneous Information (*Rx Drug Level Order Reminder*) VANCO TR LEVEL PRIOR... ONCE ONCE XX ; Start 08/11/18 at 07:30; Stop 08/11/18 at 07:31 VTE Prophylaxis Risk score (from [facility] [place]0 risk: 6 SCD applied (from [facility] [place]): No SCD contraindication: low risk/ambulating Lines/Catheters IV Catheter Type: PICC Line Central line still needed: Yes Salcido in Place: No Assessment/Plan Hospital Course A: s/p infected total shoulder P: Ok for discharge from my perspective. Follow up in two weeks in office. Dressing changes daily as needed. Assessment/Plan Assessment: Status post infected total shoulder replacement now with intravenous access and long-term intravenous care Plan: He will be discharged today pending clearance by infectious disease to assure that he has his medications in place. He will follow-up in my office in 10 days. DANILO RIVERA MD Aug 11, 2018 06:40
[2018-08-11] MEDS ORDERED: hydrALAzine 20 MG INJ IV PRN (07:00)
[2018-08-11 07:34] VITALS: BP 155/75; PULSE 72; RESP 19
[2018-08-11] MEDS: LORATADINE 10 MG TAB PO SCH (09:20)
[2018-08-11] MEDS: SENNA/DOCUSATE NA (8.6MG/50MG) TAB PO SCH (09:20)
[2018-08-11] MEDS: PRAMIPEXOLE 0.25 MG TAB PO SCH (09:21)
--- NOTE | 2018-08-11 11:05 | CONS ---
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 * Surgical team changed DSG today. * Patient with poor personal hygiene was observed to be touching his surgical wound with dirty hands -- now with (+)GNR E.Coli infected shoulder * -> s/p revision. Dr. Berman recommended both Vanco IV + Ertapenem due to high risk patient with diabetes. * Patient is tolerating Ertapenem well without evidence of allergic reaction MICRO * 08/07/18 RIGHT SHOULDER ANAEROBES (-) ANAEROBIC CULTURE Final No growth at 3 days * 08/07/18 RIGHT SHOULDER TUBE #3 CX: WOUND CULTURE Final Organism 1 ESCHERICHIA COLI QUANTITY ISOLATED FROM BROTH ONLY TUBE #3 Susceptibilities previously reported, see prior culture report of same specimen site. * 08/07/18 RIGHT SHOULDER TUBE #1 CX: WOUND CULTURE Final Organism 1 ESCHERICHIA COLI QUANTITY ISOLATED FROM BROTH ONLY TUBE #1 E COLI M.I.C. RX --------- --- AMPICILLIN <=2 S CEFAZOLIN I CEFOTAXIME S CIPROFLOXACIN <=0.25 S GENTAMICIN <=1 S LEVOFLOXACIN <=0.12 S TOBRAMYCIN <=1 S TRIMETHOPRIM/SULFAMETHOXAZOLE <=20 S PHYSICAL EXAMINATION: GENERAL: Afebrile, VSS, Obese M HEENT: AT, NC, anicteric NECK: Grossly normal CHEST: Equal chest rise bilaterally = without dyspnea HEART: Pulse RRR ABDOMEN: Soft / ND EXTREMITIES: Warm, RUEXT shoulder DSG C/D/I SKIN: No rash, no diaphoresis, multiple decubs ID ASSESSMENT 68 yo M admit with: 1. Infected right shoulder, status post revision * WOUND CULTURE Final Organism 1 ESCHERICHIA COLI 2. Morbid obesity 3. Depression 4. Poor hygiene -- touching his surgical wound with his "dirty hands" ABX ALLERGIES: PCN/KEFLEX/LATEX INVASIVES: PICC LUEXT CURRENT ABX: DAY # =>Vanco IV + ERTAPENEM ID RECOMMENDATIONS/PLAN: 1. Dr. Berman FINAL DC ABX RECOMMENDATIONS: He may DC home when cleared by primary admitting MD with HH on the following ABX * Vanco IV 1GM Q24H with continued dose per outpatient pharmacy x 6 weeks and; * Ertapenem 1gm IV daily x 6weeks 2. HAND HYGIENE STRONGLY ADVOCATED * Continued to reinforce the importance of this, along with home environment cleanliness w/respect to disinfecting bathrooms, countertops, doorknobs. * Do not touch surgical wound with hands -- only with sterile gauze or wash hands and use gloves. . Consultation Date/Type/Reason Admit Date/Time Aug 07, 2018 at 10:11 Initial Consult Date Date/Time of Note DATE: 08/11/18 TIME: 10:58 Exam/Review of Systems Exam Vitals Vital Signs Date Temp Pulse Resp B/P (MAP) Pulse Ox O2 O2 Flow FiO2 Time Delivery Rate 08/11/18 98.5 72 19 155/75 98 07:34 (101) 08/10/18 Room Air 02:35 08/08/18 2.0 15:30 Intake and Output 08/10/18 08/10/18 08/11/18 1515:00 23:00 07:00 IntakeIntake Total 500 ml 200 ml 750 ml BalanceBalance 500 ml 200 ml 750 ml Results Result Diagram: 08/08/18 0827 08/11/18 0727 Results 24hrs Laboratory Tests Test 08/11/18 07:27 Blood Urea Nitrogen 13 Creatinine 0.74 Vancomycin Level Trough 18.9 Medications Medication Current Medications Gabapentin (Neurontin) 1,600 mg QHS PO Last administered on 08/10/18at 21:27; Admin Dose 1,600 MG; Start 08/07/18 at 21:00 Levothyroxine Sodium (Synthroid) 75 mcg BEFORE BREAKFAST PO Last administered on 08/11/18at 05:42; Admin Dose 75 MCG; Start 08/08/18 at 07:00 Pramipexole (Mirapex) 0.5 mg QAM PO Last administered on 08/11/18at 09:21; Admin Dose 0.5 MG; Start 08/08/18 at 09:00 Pramipexole (Mirapex) 1.5 mg QPM PO Last administered on 08/10/18at 21:48; Admin Dose 1.5 MG; Start 08/07/18 at 21:00 Senna/Docusate Sodium (Senokot-S) 1 tab BID PO Last administered on 08/11/18 09:20; Admin Dose 1 TAB; Start 08/07/18 at 21:00 Simethicone (Mylicon) 80 mg TID PRN PO .GAS; Start 08/07/18 at 15:30 Magnesium Hydroxide (Milk Of Mag) 30 ml BID PRN PO .CONSTIPATION; Start 08/07/18 at 15:30 Loperamide HCl (Imodium Cap) 2 mg Q6H PRN PO .DIARRHEA; Start 08/07/18 at 15:30 Gabapentin (Neurontin) 300 mg HS PO Last administered on 08/10/18 21:26; Admin Dose 300 MG; Start 08/07/18 at 21:00 Acetaminophen (Tylenol Tab) 500 mg Q6 PO Last administered on 08/11/18 05:43; Admin Dose 500 MG; Start 08/07/18 at 18:00 Oxycodone HCl (Roxicodone) 15 mg Q4H PRN PO .PAIN Last administered on 08/10/18 18:11; Admin Dose 15 MG; Start 08/07/18 at 15:30 Oxycodone HCl (Roxicodone) 10 mg Q4H PRN PO .PAIN Last administered on 08/11/18 02:10; Admin Dose 10 MG; Start 08/07/18 at 15:30 Oxycodone HCl (Roxicodone) 5 mg Q4H PRN PO .PAIN; Start 08/07/18 at 15:30 Hydromorphone HCl (Dilaudid) 1 mg Q4H PRN IV .BREAKTHROUGH PAIN Last administered on 08/11/18 04:49; Admin Dose 1 MG; Start 08/07/18 at 15:30 Ketorolac Tromethamine (Toradol) 15 mg Q6H PRN IV .PAIN Last administered on 08/08/18 09:52; Admin Dose 15 MG; Start 08/07/18 at 15:30 Ondansetron HCl (Zofran Inj) 4 mg Q6H PRN IV NAUSEA/VOMITING; Start 08/07/18 at 15:30 Diphenhydramine HCl (Benadryl) 25 mg Q6H PRN IV .PRURITUS; Start 08/07/18 at 15:30 Zolpidem Tartrate (Ambien) 10 mg HS PRN PO .INSOMNIA; Start 08/07/18 at 15:30 IV Flush (NS 3 ml) 3 ml per protocol IV ; Start 08/07/18 at 15:30 Naloxone HCl (Narcan) 0.2 mg Q2M PRN IV .RESP RATE; Start 08/07/18 at 15:30 Loratadine (Claritin) 10 mg DAILY PO Last administered on 08/11/18at 09:20; Admin Dose 10 MG; Start 08/07/18 at 18:30 Doxepin HCl (Sinequan) 100 mg QHS PO Last administered on 08/10/18at 21:27; Admin Dose 100 MG; Start 08/07/18 at 21:00 IV Flush (NS 10 ml) 10 ml PRN PRN IV IV PROTOCOL; Start 08/08/18 at 21:00 Vancomycin HCl (Vanco Iv Per Pharmacy) VANCOMYCIN PER PHARMACY PER PROTOCOL XX ; Start 08/09/18 at 17:30; Stop 09/20/18 at 17:29 Ertapenem 1 gm/ Sodium Chloride 100 ml @ 200 mls/hr Q24H IVPB Last administered on 08/10/18at 21:48; Admin Dose 200 MLS/HR; Start 08/09/18 at 20:00; Stop 09/20/18 at 19:59 Hydralazine HCl (Apresoline) 5 mg Q6H PRN IV ELEVATED SYSTOLIC BP; Start at 07:00 Vancomycin HCl 1.5 gm/Sodium Chloride 250 ml @ 83.333 mls/ hr Q12H IVPB ; Start 08/11/18 at 12:00 NÉSTOR MAHONEY NP Aug 11, 2018 11:05
[2018-08-11] MEDS ORDERED: VANCOMYCIN HCL 1.5 GM in SOD CHLORIDE 0.9% 250 ML IVPB SCH (12:00)
[2018-08-11 16:29] VITALS: BP 141/62; PULSE 82; RESP 19
--- NOTE | 2018-08-12 05:53 | DS ---
Date/Time of Note Date/Time of Note DATE: 08/12/18 TIME: 05:52 Discharge Summary Admission/Discharge Info Admit Date/Time Aug 07, 2018 at 10:11 Discharge Date/Time Aug 11, 2018 at 16:57 Discharge Diagnosis Infected total shoulder Patient Condition: Good Hospital Course Patient was diagnosed with infected total shoulder. Underwent temporary spacer implantation with subsequent PICC line. Ok for discharge from my perspective after IV's set up at home. Follow up in two weeks in office. Dressing changes daily as needed. Home Meds Reported Medications Doxepin Hcl* (Doxepin Hcl*) 100 Mg Capsule, 100 MG PO HS, CAP 08/07/18 Pramipexole* (Mirapex*) 1.5 Mg Tablet, 1.5 MG PO QPM, TAB 08/07/18 Oxycodone HCl/Acetaminophen (Percocet 5-325 mg Tablet) 1 Each Tablet, 2 EACH PO Q4 PRN for PAIN, TAB 08/07/18 Pramipexole* (Mirapex*) 0.5 Mg Tablet, 0.5 MG PO QAM, TAB 06/26/18 Gabapentin* (Gabapentin*) 800 Mg Tablet, 1600 MG PO QHS, #90 TAB 06/26/18 Gabapentin* (Neurontin*) 800 Mg Tablet, 800 MG PO BID, #90 TAB 1 TAB IN AM 1 TAB AT NOON 05/01/18 Levothyroxine Sodium* (Levothyroxine Sodium*) 75 Mcg Tablet, 75 MCG PO BEFORE BREAKFAST, #30 TAB 02/06/18 Discontinued Reported Medications Duloxetine Hcl* (Cymbalta*) 60 Mg Capsule.dr, 60 MG PO BID, CAP 06/26/18 Pramipexole* (Pramipexole*) 1 Mg Tablet, 1 MG PO HS, TAB 02/06/18 Follow-up Plan 2 weeks in the office Primary Care Provider Not On Staff Doctor Pending Labs Laboratory Tests Test 08/11/18 07:27 Blood Urea Nitrogen 13 mg/dl (7-20) Creatinine 0.74 mg/dl (0.61-1.24) Vancomycin Level Trough 18.9 ug/ml (10.0-20.0) DANILO RIVERA MD Aug 12, 2018 05:53
== END 2018-08-11 16:57 | disposition home health service (06) | DRG 496 ==
LOC: REC 10:11 → EDSTATUS 16:30 → MS1 17:35
PROVIDERS: ADMIT Orthopaedic Surgery; ATTEND Orthopaedic Surgery
PROC: 0RHJ08Z Insertion of Spacer into Right Shoulder Joint, Open Approach (ICD-10-PCS; 2018-08-07)
PROC: 0RPJ0JZ Removal of Synthetic Substitute from Right Shoulder Joint, Open Approach (ICD-10-PCS; principal; 2018-08-07 14:00)
PROC: 02HV33Z Insertion of Infusion Device into Superior Vena Cava, Percutaneous Approach (ICD-10-PCS; 2018-08-08)
PROC: B548ZZA Ultrasonography of Superior Vena Cava, Guidance (ICD-10-PCS; 2018-08-08)
DX: T84.028A Dislocation of other internal joint prosthesis, initial encounter (principal); Z68.42 Body mass index [BMI] 45.0-49.9, adult; T84.59XA Infection and inflammatory reaction due to other internal joint prosthesis, initial encounter; E66.01 Morbid (severe) obesity due to excess calories; J44.9 Chronic obstructive pulmonary disease, unspecified; E11.9 Type 2 diabetes mellitus without complications; B96.20 Unspecified Escherichia coli [E. coli] as the cause of diseases classified elsewhere; E03.9 Hypothyroidism, unspecified; E78.5 Hyperlipidemia, unspecified; I10 Essential (primary) hypertension; G43.909 Migraine, unspecified, not intractable, without status migrainosus; F32.9 Major depressive disorder, single episode, unspecified; Z96.653 Presence of artificial knee joint, bilateral; Z96.611 Presence of right artificial shoulder joint; Y83.8 Other surgical procedures as the cause of abnormal reaction of the patient, or of later complication, without mention of misadventure at the time of the procedure; Y92.019 Unspecified place in single-family (private) house as the place of occurrence of the external cause
CPT/HCPCS: 36569; 71045; 76937; 80069; 80202; 82565; 84520; 85025; 86999; 87070; 87075; 87086; 88304; C1713; J0171; J0360; J0735; J1170; J1335; J1885; J2250; J2274; J2405; J2795; J3010; J3370; J7040; J7050